=== PATIENT | male | born 1955 | race Caucasian/White ===

== ENCOUNTER 2016-03-29 10:49 | Inpatient (IN) | payer OTHER ==
[2016-03-29 11:51] VITALS: BMI 27.8
--- NOTE | 2016-03-29 12:22 | HP ---
CIWA Score - CIWA Score Nausea/Vomitin Muscle Tremors: 3 Anxiety: 3 Agitation: 3 Paroxysmal Sweats: 2 Orientation: 0-Oriented Tacttile Disturbances: 2-Mild Itch/Numbness/Burn Auditory Disturbances: 2-Mild Harshness/Frighten Visual Disturbances: 2-Mild Sensitivity Headache: 2-Mild CIWA-Ar Total Score: 22 Admission ROS BHS - HPI Chief Complaint: i need help to stop drinking alcohol Allergies/Adverse Reactions: Allergies Allergy/AdvReac Type Severity Reaction Status Date / Time No Known Allergies Allergy Verified 12/14/15 17:21 History of Present Illness: this 60 years old male with alcohol dependence,withdrawal symptom,last detox to 12/18/15 hearing both osteoarthritis of right hip s/p cataract surgery of right cataract left cane ambulation depression,insomnia seizure lat 2014 withdrawal longest period of sobriety 10 months hisotry of atial fibrillation neuropathy Exam Limitations: No Limitations - Ebola screening Have you traveled outside of the country in the last 21 days: No Have you been sick,other than usual withdrawal symptoms: No - Review of Systems Constitutional: Loss of Appetite, Malaise, Night Sweats, Weakness EENT: reports: Nose Congestion Respiratory: reports: No Symptoms reported Cardiac: reports: No Symptoms Reported GI: reports: Diarrhea, Nausea, Vomiting : reports: No Symptoms Reported Musculoskeletal: reports: Back Pain, Joint Pain, Muscle Pain Integumentary: reports: Dryness Neuro: reports: Headache, Tremors Endocrine: reports: No Symptoms Reported Hematology: reports: No Symptoms Reported Psychiatric: reports: Depressed (insomnia) Patient History - Patient Medical History Hx Anemia: No Hx Asthma: No Hx Chronic Obstructive Pulmonary Disease (COPD): No Hx Cancer: No Hx Cardiac Disorders: Yes (possible a-fib) Hx Congestive Heart Failure: No Hx Hypertension: Yes (on med) Hx Hypercholesterolemia: No Hx Pacemaker: No HX Cerebrovascular Accident: No Hx Seizures: Yes (last 2014) Hx Dementia: No Hx Diabetes: No Hx Gastrointestinal Disorders: No Hx Liver Disease: No Hx Genitourinary Disorders: No Hx Sexually Transmitted Disorders: No Hx Renal Disease (ESRD): No Hx Thyroid Disease: No Hx Human Immunodeficiency Virus (HIV): No (never been tested) Hx Hepatitis C: No Hx Depression: Yes Hx Suicide Attempt: No Hx Bipolar Disorder: No Hx Schizophrenia: No Other Medical History: insomnia,no suicidal,no homicidal,ostoarthritis of right hip ambulation wit - Patient Surgical History Past Surgical History: No Hx Cataract Extraction: Yes (R EYE) Hx Abdominal Surgery: No Hx Orthopedic Surgery: Yes (FX R HIP SX IN 2011) Other Surgical History: fx: back, rt elbow, rt hip Anesthesia Reaction: No - PPD History Previous Implant?: Yes Documented Results: Negative w/proof Implanted On Prior [facility] Admission?: Yes Date: 05/28/15 Results: 0 MM PPD to be Administered?: No - Smoking Cessation Smoking history: Current every day smoker Have you smoked in the past 12 months: No Aproximately how many cigarettes per day: 2 If you are a former smoker, when did you quit?: 20 YRS. AGO Hx Chewing Tobacco Use: No Initiated information on smoking cessation: Yes 'Breaking Loose' booklet given: 03/29/16 - Substance & Tx. History Hx Alcohol Use: Yes Hx Substance Use: No Substance Use Type: Alcohol Hx Substance Use Treatment: Yes ([facility] 12/14/15 to 12/18/15) Family Disease History - Family Disease History Family Disease History: Other: Father (BPH ()), Sister (MS and rare blood disorder. leukemia) Admission Physical Exam S - Vital Signs Vital Signs: Vital Signs - 24 hr 03/29/16 11:49 Temperature 97.8 F Pulse Rate 83 Respiratory 18 Rate Blood Pressure 139/89 - Physical General Appearance: Yes: Moderate Distress, Tremorous, Irritable, Sweating, Anxious HEENTM: Yes: Nasal Congestion, Other (cataract left eye s/p cataract surgery right) Respiratory: Yes: Lungs Clear Neck: Yes: Within Normal Limits Breast: Yes: Within Normal Limits Cardiology: Yes: Within Normal Limits, Regular Rhythm, Regular Rate, S1, S2 Abdominal: Yes: Normal Bowel Sounds, Non Tender, Soft Genitourinary: Yes: Within Normal Limits Back: Yes: Muscle Spasm Musculoskeletal: Yes: Back pain, Joint Stiffness, Muscle Pain Extremities: Yes: Tremors, Other (arthritis of right hip ambulation with cane) Neurological: Yes: automatic folder seamer II-XII NML intact, Fully Oriented, Alert, Motor Strength 5/5 Integumentary: Yes: Dry Lymphatic: Yes: Within Normal Limits - Diagnostic (1) Alcohol dependence with withdrawal, uncomplicated Current Visit: No Status: Acute (2) Nicotine dependence Current Visit: No Status: Acute (3) Hypertension Current Visit: No Status: Chronic Qualifiers: Hypertension type: essential hypertension Qualified Code(s): I10 - Essential (primary) hypertension (4) Use of cane as ambulatory aid Current Visit: No Status: Chronic (5) Depression Current Visit: Yes Status: Acute (6) Osteoarthritis of right hip Current Visit: Yes Status: Acute (7) Alcohol related seizure Current Visit: Yes Status: Acute (8) Neuropathy Current Visit: Yes Status: Acute (9) Low back pain Current Visit: Yes Status: Acute (10) History of atrial fibrillation Current Visit: Yes Status: Acute Cleared for Admission [facility] - Detox or Rehab [facility] Level of Care: Medically Managed Detox Regimen/Protocol: Librium [facility] Breath Alcohol Content Breath Alcohol Content: 0.104 Urine Drug Screen - Results Drug Screen Negative: No Urine Drug Screen Results: TCA-Tricyclic Antidepress
[2016-03-29] MEDS ORDERED: MAG HYDROX/AL HYDROX/SIMETH 30 ML UNIT-DOSE CUP PO PRN (12:49)
[2016-03-29] MEDS ORDERED: LOPERAMIDE HCL 2 MG CAPSULE PO PRN (12:49)
[2016-03-29] MEDS ORDERED: ACETAMINOPHEN 325 MG TABLET (FP) PO PRN (12:49)
[2016-03-29] MEDS ORDERED: MENTHOL/PHENOL 1 EACH UD MM PRN (12:49)
[2016-03-29] MEDS ORDERED: MAGNESIUM CITRATE 300 ML BOTTLE PO PRN (12:49)
[2016-03-29] MEDS ORDERED: P-EPHED 60MG/TRIPROLIDI 2.5MG TABLET PO PRN (12:49)
[2016-03-29] MEDS ORDERED: MAGNESIUM HYDROX 2400MG/30ML ORAL SUSPENSION 30 ML CUP PO PRN (12:49)
[2016-03-29] MEDS ORDERED: guaiFENesin/D-METHORPHAN HB 10 ML UNIT-DOSE CUPS PO PRN (12:49)
[2016-03-29] MEDS ORDERED: diphenhydrAMINE HCL 50 MG CAPSULE PO PRN (12:49)
[2016-03-29] MEDS ORDERED: IBUPROFEN 400 MG TABLET (FP) PO PRN (12:49)
[2016-03-29] MEDS ORDERED: chlordiazePOXIDE HCL 25 MG CAPSULE PO ONE (13:52)
--- NOTE | 2016-03-29 14:03 | CONSULT ---
[facility] Psychiatric Consult - Data Date of interview: 03/29/16 Admission source: [facility] Identifying data: This is 60 years old male, ambulating with cane withy no history of psychiatric hospitalization intoxicated with: Alcohol and Nicotine Substance Abuse History: - Smoking Cessation. Smoking history: Current every day smoker. Have you smoked in the past 12 months: No. Aproximately how many cigarettes per day: 2. If you are a former smoker, when did you quit?: 20 YRS. AGO. Hx Chewing Tobacco Use: No. Initiated information on smoking cessation: Yes. 'Breaking Loose' booklet given: 03/29/16. - Substance & Tx. History. Hx Alcohol Use: Yes. Hx Substance Use: No. Substance Use Type: Alcohol. Hx Substance Use Treatment: Yes ([facility] 12/14/15 to 12/18/15) Medical History: Right hip fracture 2-3 yearsv ago, p/op right hip fracture, AFib, LBP[, Neyropathy, Osteoarthritis history, HTN Psychiatric History: Patient reportsa history of anxietry and depression, reports taking prior to admission: Gabapentine 300mg po tid. Trazodone 300mg pop qhs. Topamax 100mg po qhs Physical/Sexual Abuse/Trauma History: Denies Additional Comment: Gabapentine 300mg po tid. Trazodone 300mg pop qhs. Topamax 100mg po qhs Mental Status Exam - Mental Status Exam Alert and Oriented to: Person Cognitive Function: Fair Patient Appearance: Unkempt Mood: Anxious Affect: Mood Congruent Patient Behavior: Cooperative Speech Pattern: Pressured Voice Loudness: Normal Thought Process: Goal Oriented Thought Disorder: Being Controlled Hallucinations: Denies Suicidal Ideation: Denies Homicidal Ideation: Denies Insight/Judgement: Fair Sleep: Difficulty falling asleep Appetite: Weight gain Muscle strength/Tone: Moderate Hypertonicity Gait/Station: Ataxic Additional Comments: Gabapentine 300mg po tid. Trazodone 300mg pop qhs. Topamax 100mg po qhs Psychiatric Findings - Problem List ([place] 1, 2,3) (1) Alcohol related seizure Current Visit: Yes Status: Acute (2) Depression Current Visit: Yes Status: Acute (3) Alcohol dependence with withdrawal, uncomplicated Current Visit: No Status: Acute (4) Drug-induced mood disorder Current Visit: No Status: Acute (5) Nicotine dependence Current Visit: No Status: Acute - Initial Treatment Plan Initial Treatment Plan: Gabapentine 300mg po tid. Trazodone 300mg pop qhs. Topamax 100mg po qhs
[2016-03-29] MEDS: GABAPENTIN 300 MG CAPSULE (FP) PO SCH ×2 (15:39→22:47)
[2016-03-29] MEDS: hydrOXYzine PAMOATE 25 MG CAPSULE (FP) PO PRN (15:39)
[2016-03-29 16:05] LABS: URINE APPEARANCE CLEAR; URINE BILIRUBIN NEGATIVE (NEGATIVE); URINE BLOOD NEGATIVE (NEGATIVE); URINE COLOR YELLOW; URINE GLUCOSE (UA) NEGATIVE (NEGATIVE); URINE KETONE NEGATIVE (NEGATIVE); URINE LEUK ESTERASE NEGATIVE (NEGATIVE); URINE NITRITE NEGATIVE (NEGATIVE); URINE PROTEIN NEGATIVE (NEGATIVE); URINE UROBILINOGEN 2.0 E.U/dl E.U./dl (0.2-1.0)
[2016-03-29] MEDS: chlordiazePOXIDE HCL 25 MG CAPSULE PO SCH ×2 (17:25→22:47)
[2016-03-29] MEDS: chlordiazePOXIDE HCL 25 MG CAPSULE PO PRN (20:32)
[2016-03-29] MEDS: traZODone HCL 100 MG TABLET (FP) PO SCH (22:47)
[2016-03-29] MEDS: TOPIRAMATE 100 MG TABLET PO SCH (22:47)
[2016-03-29] MEDS: THIAMINE HCL 100 MG TABLET (FP) PO SCH (22:47)
[2016-03-30] MEDS: chlordiazePOXIDE HCL 25 MG CAPSULE PO SCH ×4 (06:03→22:36)
[2016-03-30] MEDS: GABAPENTIN 300 MG CAPSULE (FP) PO SCH ×3 (06:04→22:36)
[2016-03-30 10:24] LABS: MCH 30.8 pg (25.7-33.7); MCHC 33.7 g/dl (32.0-35.9); MEAN CELL VOLUME 91.3 fl (80-96); MEAN PLT VOLUME 7.6 fl (7.5-11.1); PLATELET COUNT 193 K/MM3 (134-434); RDW 14.6 % (11.9-15.9); WHITE BLOOD COUNT 5.5 K/mm3 (4.0-10.0)
[2016-03-30] MEDS: PRENATAL VITAMINS W/ FOLIC ACID TABLET (FP) PO SCH (10:38)
[2016-03-30] MEDS: ATENOLOL 25 MG TABLET (FP) PO SCH (10:39)
[2016-03-30] MEDS: SPIRONOLACTONE 25 MG TABLET (FP) PO SCH (10:39)
[2016-03-30] MEDS: hydrOXYzine PAMOATE 25 MG CAPSULE (FP) PO PRN ×2 (10:39→15:12)
[2016-03-30] MEDS: CHOLECALCIFEROL (VITAMIN D3) 1,000 UNIT TABLET (FP) PO SCH (10:40)
[2016-03-30] MEDS: CYANOCOBALAMIN 1,000 MCG TABLET (FP) PO SCH (10:40)
[2016-03-30 10:50] LABS: ALBUMIN 4.3 g/dl (3.4-5.0); ALK PHOS 72 U/L (45-117); ANION GAP 11 (8-16); CALCIUM 9.1 mg/dL (8.5-10.1); CO2 25 mmol/L (21-32); GLUCOSE,RANDOM 95 mg/dL (74-106); SGOT/AST 36 U/L (15-37); SGPT/ALT 35 U/L (12-78); TOT PROT 7.9 g/dl (6.4-8.2)
--- NOTE | 2016-03-30 10:55 | PN ---
S CIWA - CIWA Score Nausea/Vomitin Muscle Tremors: 3 Anxiety: 3 Agitation: 3 Paroxysmal Sweats: 1-Minimal Palms Moist Orientation: 0-Oriented Tacttile Disturbances: 1-Very Mild Itch/Numbness Auditory Disturbances: 1-Very Mild Visual Disturbances: 1-Very Mild Sensitivity Headache: 2-Mild CIWA-Ar Total Score: 18 BHS Progress Note (SOAP) Subjective: ALERT,IRRITABLE,ANXIOUS,INTERRUPTED SLEEP,TREMOR,PAIN IN THE BODY RIGHT HIP Objective: 03/30/16 10:54 Vital Signs Temperature 97.7 F 03/30/16 10:04 Pulse Rate 97 H 03/30/16 10:04 Respiratory Rate 18 03/30/16 10:04 Blood Pressure 148/94 03/30/16 10:04 O2 Sat by Pulse Oximetry (%) 03/30/16 10:54 Laboratory Last Values WBC 5.5 K/mm3 (4.0-10.0) 03/30/16 06:00 RBC 5.66 M/mm3 (4.00-5.60) H 03/30/16 06:00 Hgb 17.4 GM/dL (11.7-16.9) H 03/30/16 06:00 Hct 51.6 % (35.4-49) H 03/30/16 06:00 MCV 91.3 fl (80-96) 03/30/16 06:00 MCHC 33.7 g/dl (32.0-35.9) 03/30/16 06:00 RDW 14.6 % (11.9-15.9) 03/30/16 06:00 Plt Count 193 K/MM3 (134-434) 03/30/16 06:00 MPV 7.6 fl (7.5-11.1) 03/30/16 06:00 Sodium 139 mmol/L (136-145) 03/30/16 06:00 Potassium 3.9 mmol/L (3.5-5.1) 03/30/16 06:00 Chloride 103 mmol/L (98-107) 03/30/16 06:00 Carbon Dioxide 25 mmol/L (21-32) 03/30/16 06:00 Anion Gap 11 (8-16) 03/30/16 06:00 BUN 7 mg/dL (7-18) 03/30/16 06:00 Creatinine 1.0 mg/dL (0.7-1.3) 03/30/16 06:00 Creat Clearance w eGFR > 60 (>60) 03/30/16 06:00 Random Glucose 95 mg/dL (74-106) 03/30/16 06:00 Calcium 9.1 mg/dL (8.5-10.1) 03/30/16 06:00 Total Bilirubin 1.0 mg/dL (0.2-1.0) D 03/30/16 06:00 AST 36 U/L (15-37) D 03/30/16 06:00 ALT 35 U/L (12-78) D 03/30/16 06:00 Alkaline Phosphatase 72 U/L (45-117) 03/30/16 06:00 Total Protein 7.9 g/dl (6.4-8.2) 03/30/16 06:00 Albumin 4.3 g/dl (3.4-5.0) 03/30/16 06:00 Urine Color Yellow 03/29/16 15:00 Urine Appearance Clear 03/29/16 15:00 Urine pH 6.0 (5.0-8.0) D 03/29/16 15:00 Ur Specific [place] 1.014 (1.001-1.035) 03/29/16 15:00 Urine Protein Negative (NEGATIVE) 03/29/16 15:00 Urine Glucose (UA) Negative (NEGATIVE) 03/29/16 15:00 Urine Ketones Negative (NEGATIVE) 03/29/16 15:00 Urine Blood Negative (NEGATIVE) 03/29/16 15:00 Urine Nitrite Negative (NEGATIVE) 03/29/16 15:00 Urine Bilirubin Negative (NEGATIVE) 03/29/16 15:00 Urine Urobilinogen 2.0 e.u/dl E.U./dl (0.2-1.0) 03/29/16 15:00 Ur Leukocyte Esterase Negative (NEGATIVE) 03/29/16 15:00 Assessment: 03/30/16 10:54 WITHDRAWAL SYMPTOM Plan: CONTINUE DETOX
--- NOTE | 2016-03-30 12:43 | EKG ---
Test Reason : Blood Pressure : / mmHG Vent. Rate : 094 BPM Atrial Rate : 094 BPM P-R Int : 136 ms QRS Dur : 106 ms QT Int : 366 ms P-R-T Axes : 043 -62 056 degrees QTc Int : 457 ms NORMAL SINUS RHYTHM POSSIBLE LEFT ATRIAL ENLARGEMENT LEFT ANTERIOR FASCICULAR BLOCK ABNORMAL ECG WHEN COMPARED WITH ECG OF 13-JUN-2015 17:16, NO SIGNIFICANT CHANGE WAS FOUND Confirmed by ALEJANDRO ARBOLEDA MD ([id number]) on 03/30/2016 12:42:51 PM Referred By: Confirmed By:ALEJANDRO ARBOLEDA MD
[2016-03-30] MEDS: chlordiazePOXIDE HCL 25 MG CAPSULE PO PRN ×2 (14:30→20:04)
[2016-03-30] MEDS: TOPIRAMATE 100 MG TABLET PO SCH (22:36)
[2016-03-30] MEDS: traZODone HCL 100 MG TABLET (FP) PO SCH (22:36)
[2016-03-30] MEDS: THIAMINE HCL 100 MG TABLET (FP) PO SCH (22:36)
[2016-03-31] MEDS: GABAPENTIN 300 MG CAPSULE (FP) PO SCH ×3 (05:50→22:05)
[2016-03-31] MEDS: chlordiazePOXIDE HCL 25 MG CAPSULE PO SCH ×2 (05:50→10:15)
[2016-03-31] MEDS: ATENOLOL 25 MG TABLET (FP) PO SCH (07:05)
[2016-03-31] MEDS: SPIRONOLACTONE 25 MG TABLET (FP) PO SCH (07:05)
[2016-03-31] MEDS: PRENATAL VITAMINS W/ FOLIC ACID TABLET (FP) PO SCH (10:15)
[2016-03-31] MEDS: CHOLECALCIFEROL (VITAMIN D3) 1,000 UNIT TABLET (FP) PO SCH (10:15)
[2016-03-31] MEDS: CYANOCOBALAMIN 1,000 MCG TABLET (FP) PO SCH (10:15)
--- NOTE | 2016-03-31 12:52 | PN ---
S CIWA - CIWA Score Nausea/Vomitin Muscle Tremors: 3 Anxiety: 2 Agitation: 2 Paroxysmal Sweats: 1-Minimal Palms Moist Orientation: 0-Oriented Tacttile Disturbances: 1-Very Mild Itch/Numbness Auditory Disturbances: 1-Very Mild Visual Disturbances: 1-Very Mild Sensitivity Headache: 2-Mild CIWA-Ar Total Score: 16 S Progress Note (SOAP) Subjective: ALERT,IRRITABLE,ANXIOUS,INTERRUPTED SLEEP,TREMOR Objective: 03/31/16 12:50 Vital Signs Temperature 96.4 F L 03/31/16 10:00 Pulse Rate 71 03/31/16 10:00 Respiratory Rate 20 03/31/16 10:00 Blood Pressure 116/54 03/31/16 10:00 O2 Sat by Pulse Oximetry (%) 03/31/16 12:51 Laboratory Last Values WBC 5.5 K/mm3 (4.0-10.0) 03/30/16 06:00 RBC 5.66 M/mm3 (4.00-5.60) H 03/30/16 06:00 Hgb 17.4 GM/dL (11.7-16.9) H 03/30/16 06:00 Hct 51.6 % (35.4-49) H 03/30/16 06:00 MCV 91.3 fl (80-96) 03/30/16 06:00 MCHC 33.7 g/dl (32.0-35.9) 03/30/16 06:00 RDW 14.6 % (11.9-15.9) 03/30/16 06:00 Plt Count 193 K/MM3 (134-434) 03/30/16 06:00 MPV 7.6 fl (7.5-11.1) 03/30/16 06:00 Sodium 139 mmol/L (136-145) 03/30/16 06:00 Potassium 3.9 mmol/L (3.5-5.1) 03/30/16 06:00 Chloride 103 mmol/L (98-107) 03/30/16 06:00 Carbon Dioxide 25 mmol/L (21-32) 03/30/16 06:00 Anion Gap 11 (8-16) 03/30/16 06:00 BUN 7 mg/dL (7-18) 03/30/16 06:00 Creatinine 1.0 mg/dL (0.7-1.3) 03/30/16 06:00 Creat Clearance w eGFR > 60 (>60) 03/30/16 06:00 Random Glucose 95 mg/dL (74-106) 03/30/16 06:00 Calcium 9.1 mg/dL (8.5-10.1) 03/30/16 06:00 Total Bilirubin 1.0 mg/dL (0.2-1.0) D 03/30/16 06:00 AST 36 U/L (15-37) D 03/30/16 06:00 ALT 35 U/L (12-78) D 03/30/16 06:00 Alkaline Phosphatase 72 U/L (45-117) 03/30/16 06:00 Total Protein 7.9 g/dl (6.4-8.2) 03/30/16 06:00 Albumin 4.3 g/dl (3.4-5.0) 03/30/16 06:00 Urine Color Yellow 03/29/16 15:00 Urine Appearance Clear 03/29/16 15:00 Urine pH 6.0 (5.0-8.0) D 03/29/16 15:00 Ur Specific [place] 1.014 (1.001-1.035) 03/29/16 15:00 Urine Protein Negative (NEGATIVE) 03/29/16 15:00 Urine Glucose (UA) Negative (NEGATIVE) 03/29/16 15:00 Urine Ketones Negative (NEGATIVE) 03/29/16 15:00 Urine Blood Negative (NEGATIVE) 03/29/16 15:00 Urine Nitrite Negative (NEGATIVE) 03/29/16 15:00 Urine Bilirubin Negative (NEGATIVE) 03/29/16 15:00 Urine Urobilinogen 2.0 e.u/dl E.U./dl (0.2-1.0) 03/29/16 15:00 Ur Leukocyte Esterase Negative (NEGATIVE) 03/29/16 15:00 RPR Titer Nonreactive (NONREACTIVE) 03/30/16 06:00 Assessment: 03/31/16 12:51 WITHDRAWAL SYMPTOM Plan: CONTINUE DETOX
[2016-03-31] MEDS: chlordiazePOXIDE 5 MG CAPSULE PO SCH ×2 (17:50→22:05)
[2016-03-31] MEDS: TOPIRAMATE 100 MG TABLET PO SCH (22:05)
[2016-03-31] MEDS: traZODone HCL 100 MG TABLET (FP) PO SCH (22:05)
[2016-03-31] MEDS: THIAMINE HCL 100 MG TABLET (FP) PO SCH (22:06)
[2016-04-01] MEDS: chlordiazePOXIDE 5 MG CAPSULE PO SCH ×2 (05:47→10:12)
[2016-04-01] MEDS: GABAPENTIN 300 MG CAPSULE (FP) PO SCH ×3 (05:52→22:01)
[2016-04-01] MEDS: SPIRONOLACTONE 25 MG TABLET (FP) PO SCH (06:47)
[2016-04-01] MEDS: ATENOLOL 25 MG TABLET (FP) PO SCH (06:47)
[2016-04-01] MEDS: CYANOCOBALAMIN 1,000 MCG TABLET (FP) PO SCH (10:13)
[2016-04-01] MEDS: PRENATAL VITAMINS W/ FOLIC ACID TABLET (FP) PO SCH (10:13)
[2016-04-01] MEDS: CHOLECALCIFEROL (VITAMIN D3) 1,000 UNIT TABLET (FP) PO SCH (10:13)
--- NOTE | 2016-04-01 12:59 | PN ---
S Progress Note (SOAP) Subjective: ALERT,INTERRUPTED SLEEP Objective: 04/01/16 12:59 Vital Signs Temperature 98.2 F 04/01/16 10:00 Pulse Rate 72 04/01/16 10:00 Respiratory Rate 18 04/01/16 10:00 Blood Pressure 117/77 04/01/16 10:00 O2 Sat by Pulse Oximetry (%) Assessment: 04/01/16 12:59 WITHDRAWAL SYMPTOM Plan: CONTINUE DETOX,DISCHARGE IN AM
[2016-04-01] MEDS: chlordiazePOXIDE HCL 10 MG CAPSULE PO SCH ×2 (17:16→22:05)
[2016-04-01] MEDS: traZODone HCL 100 MG TABLET (FP) PO SCH (22:01)
[2016-04-01] MEDS: TOPIRAMATE 100 MG TABLET PO SCH (22:03)
[2016-04-01] MEDS: THIAMINE HCL 100 MG TABLET (FP) PO SCH (22:05)
[2016-04-02] MEDS: ATENOLOL 25 MG TABLET (FP) PO SCH (06:11)
[2016-04-02] MEDS: chlordiazePOXIDE HCL 10 MG CAPSULE PO SCH ×2 (06:11→10:05)
[2016-04-02] MEDS: SPIRONOLACTONE 25 MG TABLET (FP) PO SCH (06:11)
[2016-04-02] MEDS: GABAPENTIN 300 MG CAPSULE (FP) PO SCH ×3 (06:12→22:12)
--- NOTE | 2016-04-02 08:40 | PN ---
BHS Progress Note (SOAP) Subjective: ALERT,IRRITABLE,ANXIOUS,INTERRUPTED SLEEP,TREMOR.PAIN THE RIGHT HIP Objective: 04/02/16 08:37 04/02/16 08:38 Vital Signs Temperature 97.2 F L 04/02/16 06:00 Pulse Rate 71 04/02/16 06:00 Respiratory Rate 18 04/02/16 06:00 Blood Pressure 139/76 04/02/16 06:00 O2 Sat by Pulse Oximetry (%) Assessment: 04/02/16 08:38 WITHDRAWAL SYMPTOM Plan: HOLD DISCHARGE TODAY,CONTINUE DETOX OBSERVATION,DISCHARGE IN AM
[2016-04-02] MEDS: CHOLECALCIFEROL (VITAMIN D3) 1,000 UNIT TABLET (FP) PO SCH (10:05)
[2016-04-02] MEDS: PRENATAL VITAMINS W/ FOLIC ACID TABLET (FP) PO SCH (10:05)
[2016-04-02] MEDS: CYANOCOBALAMIN 1,000 MCG TABLET (FP) PO SCH (10:05)
[2016-04-02] MEDS: traZODone HCL 100 MG TABLET (FP) PO SCH (22:12)
[2016-04-02] MEDS: TOPIRAMATE 100 MG TABLET PO SCH (22:12)
[2016-04-02] MEDS: THIAMINE HCL 100 MG TABLET (FP) PO SCH (22:12)
[2016-04-03] MEDS: GABAPENTIN 300 MG CAPSULE (FP) PO SCH (07:00)
[2016-04-03] MEDS: ATENOLOL 25 MG TABLET (FP) PO SCH (07:28)
[2016-04-03] MEDS: SPIRONOLACTONE 25 MG TABLET (FP) PO SCH (07:28)
--- NOTE | 2016-04-03 09:47 | DS ---
[facility] Detox Discharge Summary Admission Date: 03/29/16 - History Present History: Alcohol Dependence - Physical Exam Results Vital Signs: Vital Signs Temperature 97.9 F 04/03/16 06:52 Pulse Rate 73 04/03/16 06:52 Respiratory Rate 18 04/03/16 06:52 Blood Pressure 123/73 04/03/16 06:52 O2 Sat by Pulse Oximetry (%) - Medication Discharge Medications: Ambulatory Orders Cholecalciferol (Vitamin D3) [Vitamin D3] 1,000 unit PO DAILY capsule 09/02/14 Cyanocobalamin (Vitamin B-12) [Vitamin B-12] 1,000 mcg PO DAILY tablet Gabapentin 300 mg PO TID 11/02/14 Topiramate [Topamax] 100 mg PO HS 03/27/16 Topiramate [Topamax -] 100 mg PO HS #30 tablet 03/29/16 Trazodone HCl [Desyrel -] 300 mg PO HS #30 tablet 03/29/16
[2016-04-03 10:14] VITALS: BP 116/63; PULSE 65; TEMP 97.7
== END 2016-04-03 11:26 | disposition home or self-care (01) | DRG 897 ==
LOC: YASAS 10:49 → Y6N 13:45
PROVIDERS: ADMIT Internal Medicine Addiction Medicine; ATTEND Internal Medicine Addiction Medicine
PROC: HZ2ZZZZ Detoxification Services for Substance Abuse Treatment (ICD-10-PCS; principal; 2016-03-29)
DX: F19.230 Other psychoactive substance dependence with withdrawal, uncomplicated (principal); F10.230 Alcohol dependence with withdrawal, uncomplicated; F17.210 Nicotine dependence, cigarettes, uncomplicated; F19.24 Other psychoactive substance dependence with psychoactive substance-induced mood disorder; F32.9 Major depressive disorder, single episode, unspecified; M16.11 Unilateral primary osteoarthritis, right hip; H26.9 Unspecified cataract; G47.00 Insomnia, unspecified; I10 Essential (primary) hypertension; G62.9 Polyneuropathy, unspecified; M54.5 Low back pain; Z86.69 Personal history of other diseases of the nervous system and sense organs; Z98.41 Cataract extraction status, right eye; Z86.79 Personal history of other diseases of the circulatory system
CPT/HCPCS: 36415; 71020-TC; 73700-TC-RT; 80053; 81003; 85027; 86593; 93005; 93010; 93306-TC

== ENCOUNTER 2016-04-03 08:00 | Inpatient (IN) | payer OTHER ==
--- NOTE | 2016-04-16 13:28 | HP ---
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: Peripheral Neuropathy Cardiovascular: Yes: HTN (can not recall meds at home) Hepatobiliary: Yes: Other (alcoholic hepatitis) Musculoskeletal: Yes: Chronic low back pain (old compression fractures) - Current Medications Current Medications: Medication Instructions Recorded Cholecalciferol (Vitamin D3) 1,000 unit PO DAILY capsule 09/02/14 [Vitamin D3] Cyanocobalamin (Vitamin B-12) 1,000 mcg PO DAILY tablet 09/02/14 [Vitamin B-12] Gabapentin 300 mg PO TID 11/02/14 Topiramate [Topamax] 100 mg PO HS 03/27/16 Topiramate [Topamax -] 100 mg PO HS #30 tablet 03/29/16 Trazodone HCl [Desyrel -] 300 mg PO HS #30 tablet 03/29/16 Atenolol [Tenormin -] 25 mg PO AM #30 tablet 04/03/16 Diltiazem Cd [Cardizem Cd -] 180 mg PO AM #30 cap.cd.24h 04/03/16 Gabapentin [Neurontin -] 300 mg PO TID #90 capsule 04/03/16 Spironolactone [Aldactone -] 25 mg PO AM #30 tablet 04/03/16 Trazodone HCl 150 mg PO 2 TABS HS tablet 04/10/16 Satellite Physical Exam - Physical Examination General Appearance: Well Nourished, Well Developed, Alert & Oriented x3 ENT: Clear Lung: Normal air movement Heart: Regular rate & rhythm Extremities: Other (right hip- healed incisions, + ttp, dec rom, nvi xrays show gamma in place with severe hip djd) Neurological: Intact, Alert, Oriented Satellite Impression/Plan - Impression/Plan Impression: right hip djd s/p gamma nail Operative Procedure: right hip removal of hardware conversion to charisma THR Date to be Performed: 04/17/16
[2016-04-17] MEDS ORDERED: GABAPENTIN 300 MG CAPSULE (FP) PO ONE (08:42)
[2016-04-17] MEDS ORDERED: oxyCODONE HCL 10 MG SUSTAINED ACTING TABLET PO ONE (08:42)
[2016-04-17] MEDS ORDERED: TRANEXAMIC ACID 1000 MG/10 ML VIAL IVPUSH ONE (08:42)
[2016-04-17] MEDS ORDERED: CELECOXIB 200 MG CAPSULE PO ONE (08:42)
[2016-04-17] MEDS ORDERED: CEFAZOLIN 2 GM in DEXTROSE 5%-WATER - 50 ML IVPB ONE (08:42)
[2016-04-17 09:25] VITALS: BMI 27.3
[2016-04-17] MEDS ORDERED: PROPOFOL 20 ML ONE ×2 (09:30)
[2016-04-17] MEDS ORDERED: DEXAMETHASONE SOD PHOSPHATE 4 MG/1 ML VIAL ONE (09:31)
[2016-04-17] MEDS ORDERED: ONDANSETRON 4 MG/2 ML VIAL ONE (09:31)
[2016-04-17] MEDS ORDERED: ceFAZolin SODIUM 1 GM VIAL ONE ×2 (09:31→10:36)
[2016-04-17] MEDS ORDERED: VANCOMYCIN 1,000 MG VIAL (RESTRICTED TO ID ONLY) ONE (10:36)
[2016-04-17] MEDS ORDERED: ROPIVACAINE HCL 0.5% 30ML VIAL ONE (10:43)
[2016-04-17] MEDS ORDERED: DEXAMETHASONE SOD PHOSPHATE/PF 10 MG/ML SDV ONE (10:43)
[2016-04-17] MEDS ORDERED: MIDAZOLAM HCL 2 MG/2 ML SINGLE DOSE VIAL ONE ×3 (10:43→13:39)
[2016-04-17] MEDS ORDERED: SODIUM CHLORIDE 0.9% P/F 10 ML VIAL IJ ONE (10:44)
[2016-04-17] MEDS ORDERED: BUPIVACAINE HCL/PF 0.5% (5MG/ML) 10 ML VIAL ONE (11:31)
[2016-04-17] MEDS ORDERED: ePHEDrine SULFATE 50 MG/1 ML AMPULE ONE (11:58)
[2016-04-17 13:48] LABS: MCH 30.5 pg (25.7-33.7); MEAN CELL VOLUME 89.7 fl (80-96); MEAN PLT VOLUME 6.6 fl (7.5-11.1); PLATELET COUNT 273 K/MM3 (134-434); WHITE BLOOD COUNT 8.7 K/mm3 (4.0-10.0)
[2016-04-17] MEDS ORDERED: MAGNESIUM HYDROX 2400MG/30ML ORAL SUSPENSION 30 ML CUP PO PRN (14:22)
--- NOTE | 2016-04-17 14:26 | OP ---
Operative Note - Note: Operative Date: 04/17/16 (shante) Pre-Operative Diagnosis: right hip djd, s/p right IM gamma nail Operation: right hip removal of hardware, charisma thr Post-Operative Diagnosis: Same as Pre-op Surgeon: Zaki Leonard Ur Coordinator: Moe Sam Anesthesiologist/STAINING MACHINE OPERATOR: Antonia Moralez Anesthesia: Spinal, Local Specimens Removed: femoral head, bone fragments Estimated Blood Loss (mls): 1,200 Operative Report Dictated: Yes
[2016-04-17] MEDS ORDERED: LACTATED RINGERS SOLUTION 1,000 ML IV SCH (14:30)
[2016-04-17] MEDS ORDERED: MAG HYDROX/AL HYDROX/SIMETH 30 ML UNIT-DOSE CUP PO PRN (15:05)
[2016-04-17] MEDS ORDERED: ONDANSETRON 4 MG/2 ML VIAL IVPB PRN (15:06)
[2016-04-17] MEDS ORDERED: ACETAMINOPHEN 1000 MG/100 ML VIAL (NON FORMULARY) IVPB ONE ×2 (15:30)
[2016-04-17] MEDS: oxyCODONE HCL 5 MG TABLET PO PRN ×3 (15:30→22:09)
[2016-04-17] MEDS: ACETAMINOPHEN 325 MG TABLET (FP) PO SCH ×2 (16:54→22:09)
[2016-04-17] MEDS ORDERED: PT OWN MED DRAWER 7, Y5N ONE ×2 (17:55→21:59)
[2016-04-17] MEDS ORDERED: traZODone HCL 150 MG TABLET PO SCH (22:00)
[2016-04-17] MEDS: CEFAZOLIN 2 GM/D5W 50 ML IVPB SCH (22:06)
[2016-04-17] MEDS: oxyCODONE HCL 10 MG SUSTAINED ACTING TABLET PO SCH (22:07)
[2016-04-17] MEDS: GABAPENTIN 300 MG CAPSULE (FP) PO SCH (22:07)
[2016-04-17] MEDS: TOPIRAMATE 100 MG TABLET PO SCH (22:07)
[2016-04-17] MEDS: traZODone HCL 50 MG TABLET (FP) PO SCH (22:08)
[2016-04-17] MEDS: SENNOSIDES/DOCUSATE COMBO (SENNA PLUS) TABLET (UD) PO SCH (22:08)
--- NOTE | 2016-04-17 23:30 | OP ---
DATE OF OPERATION: 04/17/2016 PREOPERATIVE DIAGNOSIS: Degenerative joint disease, right hip in a hip that previously had a Gamma nail for an intertrochanteric hip fracture. POSTOPERATIVE DIAGNOSIS: Degenerative joint disease, right hip in a hip that previously had a Gamma nail for an intertrochanteric hip fracture. PROCEDURE: Conversion of prior Gamma nailing to a right total hip replacement with robotic assisted navigation ([employer]). SURGEON: Zaki Leonard MD SUPPORT SPECIALIST: SRIDEVI Gavin ANESTHESIA: Spinal and regional. CLOSURE: Muslim Modular total hip system with a No. 18 femoral stem, a +10 body, a 36 ceramic Standard femoral head, a 54 Tritanium press fit acetabulum, No. 1 Vicryl to fascia, 0 and 2-0 subcutaneous, and 3-0 Monocryl subcuticular with skin glue. ESTIMATED BLOOD LOSS: Approximately 500 mL. COMPLICATIONS: None. CONDITION: To recovery in stable condition. DESCRIPTION OF PROCEDURE: The patient was taken to the operating room on 04/17/2016. Spinal as well as regional anesthesia was administered by the anesthesiologist. IV Kefzol and TXA were administered prophylactically prior to the case. The patient was placed in the lateral decubitus position with all prominences well padded. The right hip area was prepped and draped in the usual sterile fashion. A 15-cm curvilinear longitudinal incision on the posterolateral aspect of the hip was incised. Hemostasis was obtained with Bovie cautery. Sharp dissection was carried down to the level of the fascia. It was opened the entire length of the incision. A Charnley retractor was placed and care was taken not to impel the sciatic nerve. A small stab incision was made distally over the distal locking screw. It was found that the screw buried in bone; therefore, we needed to extend the operative incision down there to gain exposure, which we did anteriorly and posteriorly with retractors. Curettes and osteotomes were used to free up the head of the screw. The screw was then removed. The lag screw was clearly visualized; however, due to the set screw was placed inside the poncho, the lag screw could not be removed. Subperiosteal dissection was done in the posterior aspect of the greater trochanter until we gained access to the hip. A lot of bone had overgrown this region of the previous hip fracture. Much of this bone was debrided away to gain exposure, ensuring that we left the abductor attached to the greater trochanter and that was not detached . All that was detached was excess bone posteriorly. Care was taken to do this subperiosteally to protect the sciatic nerve posteriorly. The greater trochanter was then partially osteotomized to be able to elevate it to gain access to the proximal aspect of the Gamma nail, which was buried within the bone. Once access was gained, set screw was unlocked and the lag screw was then removed and then the poncho was able to be slid out of the intramedullary canal. The femoral neck was osteotomized at the appropriate level, removing the femoral head. Great deal of heterotopic bone had formed around the femoral shaft and this was again removed subperiosteally to ensure that this bone would not encroach on our acetabulum and dislocate her hip postoperative. Anterior and posterior retractors were then placed around the acetabulum. The labrum was excised circumferentially. Exposing the acetabulum. A checkpoint was placed in the pelvis and malleted into place. Through 3 small stab incisions, pins were drilled into the iliac crest and an array was fastened to communicate with the navigation device. The hip was then registered with the navigation device and ensured registration was "popping the bubbles". The [employer] robot was then brought into the field. A 53 reamer was used to ream the acetabulum down to the appropriate level, as per our preoperative plan. A 54 Tritanium cup was then malleted into place using the MED navigation tool to ensure a 20/40 position of the acetabular component. Excellent rigidity was obtained. A polyethylene cup able to receive a 36-mm head with a 10 degree lip in the superior posterior quadrant was then clipped into placed. Next, our attention was directed to the proximal femur. A horizontal cut was made on the femoral shaft to get a nice flat surface for reaming. Intramedullary reaming was performed until an 18-mm reamer achieved chatter. The real fluted and ridged stem was then malleted down into place down to the appropriate depth. The trunnion was reamed to accept a 22 body. A trial reduction with a +10-mm length body with the appropriate aversion was performed with the 36-mm head. Equal limb lengths were obtained and the hip was table to marked flexion and internal rotation, had a positive hang test, and negative telescoping and was stable in external rotation. The trial body and head were removed. The real body was welded to the trunnion and then screwed with a locking screw with the appropriate aversion being placed. A 36-mm ceramic head was then cold welded to the trunnion and the hip was reduced. Again, range of motion, stability, and limb lengths were as described earlier. The hip was pulsed antibiotic irrigated. The greater trochanter, which had been osteotomized, was placed back, against the prosthesis, its undersurface where it was hallowed out to ensure good fitting of the trochanter on the prosthesis. Two Dall-Bauzaar cables were placed around the proximal body of the component and around the greater trochanter and through a medium cable associate professor of music for the trochanter. It was appropriately tensioned and clipped into place. The excess wire was cut flush with the cable associate professor of music. Range of motion and stability of the construct was demonstrated to e excellent throughout. Some of the cancellous bone that we had taken out of the head and from the trochanter was used to bone graft the region between the greater trochanter and the prosthesis and the greater trochanter and the distal femur to aid in bon healing. Vancomycin powder placed into the hip joint. The fascia was closed using No. 1 Vicryl interrupted suture, 0 and 2-0 for subcutaneous, and 3-0 Monocryl subcuticular with skin glue for the skin. Pressure dressing with an Aquacel dressing was applied. The patient was awakened from anesthesia and transferred to the recovery room in the supine position. X-ray was taken, which revealed excellent position of the components. Bilateral SCDs and abduction pillow was applied. Estimated blood loss was approximately 500 mL. No complications. Marta [id number]
[2016-04-18] MEDS: CEFAZOLIN 2 GM/D5W 50 ML IVPB SCH (04:40)
[2016-04-18] MEDS: ACETAMINOPHEN 325 MG TABLET (FP) PO SCH ×4 (04:40→21:08)
[2016-04-18] MEDS: ATENOLOL 25 MG TABLET (FP) PO SCH (06:22)
[2016-04-18] MEDS: SPIRONOLACTONE 25 MG TABLET (FP) PO SCH (06:22)
[2016-04-18] MEDS: oxyCODONE HCL 5 MG TABLET PO PRN ×2 (08:26→17:49)
[2016-04-18] MEDS: ASPIRIN 325 MG TABLET PO SCH (08:26)
--- NOTE | 2016-04-18 08:29 | PN ---
Progress Note (short form) - Note Progress Note: Ortho Pt seen and examined s/p right charisma thr pod #1 Selected Entries 04/18/16 06:24 Temperature 98.6 F Pulse Rate 77 Respiratory 20 Rate Blood Pressure 101/46 dressing c/d/i, calf soft, nt nvi a/p PT dvt ppx pain control d/c planning
[2016-04-18 08:55] LABS: MEAN CELL VOLUME 91.1 fl (80-96); MEAN PLT VOLUME 6.9 fl (7.5-11.1); PLATELET COUNT 263 K/MM3 (134-434)
[2016-04-18 09:11] LABS: CALCIUM 8.6 mg/dl (8.4-10.2); CREATININE 0.8 mg/dl (0.6-1.3)
[2016-04-18] MEDS: SENNOSIDES/DOCUSATE COMBO (SENNA PLUS) TABLET (UD) PO SCH ×2 (10:00→21:08)
[2016-04-18] MEDS: THIAMINE HCL 100 MG TABLET (FP) PO SCH (11:11)
[2016-04-18] MEDS: MULTIVITAMINS (DAILY MVI) TABLET (FP) PO SCH (11:11)
[2016-04-18] MEDS: PANTOPRAZOLE 40 MG TABLET (FP) PO SCH (11:11)
[2016-04-18] MEDS: GABAPENTIN 300 MG CAPSULE (FP) PO SCH ×2 (11:11→21:08)
[2016-04-18] MEDS: oxyCODONE HCL 10 MG SUSTAINED ACTING TABLET PO SCH ×2 (11:12→21:06)
--- NOTE | 2016-04-18 11:18 | PN ---
Progress Note (short form) - Note Progress Note: S: POD #1 s/p R THR mild pain, just completed PT RLE numbness receded O: awake and alert Vital Signs Period Temp Pulse Resp BP Sys/Tse Pulse Ox Last 24 Hr 97.5 F-98.6 F 41-85 12-20 86-114/46-98 96-100 A/P: POD #1 R THR PO analgeiscs prn
[2016-04-18] MEDS ORDERED: PT OWN MED DRAWER 7, Y5N ONE (21:05)
[2016-04-18] MEDS: traZODone HCL 50 MG TABLET (FP) PO SCH (21:07)
[2016-04-18] MEDS: TOPIRAMATE 100 MG TABLET PO SCH (21:08)
[2016-04-19] MEDS: ACETAMINOPHEN 325 MG TABLET (FP) PO SCH ×4 (05:00→21:23)
[2016-04-19] MEDS: oxyCODONE HCL 5 MG TABLET PO PRN ×4 (05:23→21:25)
[2016-04-19] MEDS: SPIRONOLACTONE 25 MG TABLET (FP) PO SCH (06:26)
[2016-04-19] MEDS: ATENOLOL 25 MG TABLET (FP) PO SCH (06:26)
--- NOTE | 2016-04-19 08:19 | PN ---
Progress Note (short form) - Note Progress Note: Ortho Pt seen and examined s/p right charisma thr pod #2 Selected Entries 04/19/16 05:30 Temperature 100.2 F H Pulse Rate 65 Respiratory 19 Rate Blood Pressure 105/46 Laboratory Tests 04/18/16 07:49 WBC 10.0 Hgb 12.6 Hct 38.1 Plt Count 263 dressing saturated, calf soft, nt nvi a/p Dressing changed PT dvt ppx pain control d/c home tomorrow if stable
[2016-04-19 08:41] LABS: MCH 30.2 pg (25.7-33.7); MCHC 33.3 g/dl (32.0-35.9); MEAN CELL VOLUME 90.9 fl (80-96); MEAN PLT VOLUME 7.2 fl (7.5-11.1); PLATELET COUNT 195 K/MM3 (134-434); RDW 13.7 % (11.9-15.9); WHITE BLOOD COUNT 9.5 K/mm3 (4.0-10.0)
[2016-04-19] MEDS: SENNOSIDES/DOCUSATE COMBO (SENNA PLUS) TABLET (UD) PO SCH ×2 (09:00→21:24)
[2016-04-19] MEDS: PANTOPRAZOLE 40 MG TABLET (FP) PO SCH (09:01)
[2016-04-19] MEDS: oxyCODONE HCL 10 MG SUSTAINED ACTING TABLET PO SCH ×2 (09:01→21:23)
[2016-04-19] MEDS: MULTIVITAMINS (DAILY MVI) TABLET (FP) PO SCH (09:02)
[2016-04-19] MEDS: ASPIRIN 325 MG TABLET PO SCH (09:02)
[2016-04-19] MEDS: GABAPENTIN 300 MG CAPSULE (FP) PO SCH ×2 (09:02→21:24)
[2016-04-19] MEDS: THIAMINE HCL 100 MG TABLET (FP) PO SCH (10:00)
[2016-04-19] MEDS ORDERED: PT OWN MED DRAWER 7, Y5N ONE (21:17)
[2016-04-19] MEDS: TOPIRAMATE 100 MG TABLET PO SCH (21:23)
[2016-04-19] MEDS: traZODone HCL 50 MG TABLET (FP) PO SCH (21:23)
[2016-04-20] MEDS: ACETAMINOPHEN 325 MG TABLET (FP) PO SCH ×2 (04:00→09:55)
[2016-04-20] MEDS: ATENOLOL 25 MG TABLET (FP) PO SCH (06:34)
[2016-04-20] MEDS: SPIRONOLACTONE 25 MG TABLET (FP) PO SCH (06:35)
[2016-04-20] MEDS: oxyCODONE HCL 5 MG TABLET PO PRN ×2 (06:36→13:45)
--- NOTE | 2016-04-20 08:07 | PN ---
Progress Note (short form) - Note Progress Note: Ortho Pt seen and examined s/p right charisma thr pod #3 Selected Entries 04/20/16 06:00 Temperature 99.5 F Pulse Rate 72 Respiratory 19 Rate Blood Pressure 107/43 Laboratory Tests 04/19/16 07:00 WBC 9.5 Hgb 10.8 L D Hct 32.5 L Plt Count 195 D slioght drainage on dressing, calf soft, nt nvi a/p Dressing changed PT dvt ppx pain control d/c home today f/u in 1 week
--- NOTE | 2016-04-20 08:08 | DS ---
Physical Examination Vital Signs: Vital Signs Temperature 99.5 F 04/20/16 06:00 Pulse Rate 72 04/20/16 06:00 Respiratory Rate 18 04/20/16 07:46 Blood Pressure 107/43 04/20/16 06:00 O2 Sat by Pulse Oximetry (%) 98 04/20/16 07:46 Labs: CBC, BMP 04/19/16 07:00 04/18/16 07:49 Discharge Summary Reason For Visit: RIGHT HIP OSTEOARTHRITIS Procedures: Principal: s/p right charisma thr Hospital Course: admitted for elective right hip removal of hardware and conversion to charisma thr, uneventful post-op, stable for d/c Condition: Good - Instructions Diet, Activity, Other Instructions: Post-op Instructions-Total Hip Replacement Call the office for a follow-up appointment in 1 week - [phone] Aspirin 325mg daily for 6 weeks. Pain medication was sent into your pharmacy. Apply Graduated Compression Stockings (TEDs) to both lower extremities- remove daily for hygiene ONLY Apply Sequential Compression Device (SCDs) to both Lower extremities remove for PT and hygiene ONLY Apply cold packs to affected area for 15 minutes every 2 hours. Physical Therapist will come to your home for the first 5 days. You will be set up with outpatient PT at your first post-operative visit. Patient may ambulate as tolerated-encourage self care (at least every 2-3 hours while awake) with walker or cane Maintain Aquacel (waterproof) dressing to operative wound (will be removed by surgeon at first office visit) Shower with Aquacel dressing in place-if Aquacel integrity compromised, remove and apply dry sterile dressing and notify Orthopedist. DO NOT SHOWER unless Orthopedists approves without Aquacel dressing CONTACT THE OFFICE FOR ANY CHANGE IN YOUR CONDITION (for example-fever greater than 102 degrees,excessive bleeding from operative site, purulent drainage, severe swelling or pain) GO TO THE EMERGENCY ROOM IF THERE IS A MEDICAL EMERGENCY Hip Precautions: * Keep a rolled towel under affected heel while in bed or chair (to keep knee in extension) * Dependent upon approach: * Posterior - do not cross legs; do not sit on low chairs or toilets. * If you have any questions, please do not hesitate to call the office - . Referrals: Zaki Leonard MD [Staff Physician] - Disposition: VNS/HOME HEALTH CARE - Home Medications Comprehensive Discharge Medication List: Ambulatory Orders Cholecalciferol (Vitamin D3) [Vitamin D3] 1,000 unit PO DAILY capsule 09/02/14 Cyanocobalamin (Vitamin B-12) [Vitamin B-12] 1,000 mcg PO DAILY tablet Topiramate [Topamax -] 100 mg PO HS #30 tablet 03/29/16 Trazodone HCl [Desyrel -] 300 mg PO HS #30 tablet 03/29/16 Atenolol [Tenormin -] 25 mg PO AM #30 tablet 04/03/16 Diltiazem Cd [Cardizem Cd -] 180 mg PO AM #30 cap.cd.24h 04/03/16 Gabapentin [Neurontin -] 300 mg PO TID #90 capsule 04/03/16 Spironolactone [Aldactone -] 25 mg PO AM #30 tablet 04/03/16 Aspirin [ASA -] 325 mg PO DAILY@0800 tablet 04/17/16 Oxycodone HCl/Acetaminophen [Percocet 5-325 mg Tablet -] 1 - 2 tab PO Q6H #50 tab MDD 8 04/17/16 Thiamine HCl [B-1] 100 mg PO DAILY 04/17/16
[2016-04-20] MEDS: ASPIRIN 325 MG TABLET PO SCH (08:38)
--- NOTE | 2016-04-20 08:51 | PATH ---
Surgical Pathology Report Patient Name: PEE ODOM Med. Rec. #: [id number] /Age/Gender: 1955 (Age: 60) / M Account: [id number] Location: [facility] MED-SURG Taken: 04/17/2016 Received: 04/17/2016 Reported: 04/20/2016 Physicians: Zaki Leonard M.D. Specimen(s) Received A: RIGHT FEMORAL HEAD B: RIGHT HIP EXPLANT Clinical History Right hip DJD Final Diagnosis A. BONE, RIGHT FEMORAL HEAD, REPLACEMENT: DEGENERATIVE JOINT DISEASE AND AVASCULAR NECROSIS. B. ORTHOPEDIC HARDWARE, RIGHT HIP, REMOVAL: METALLIC KEVEN AND SCREWS CONSISTENT WITH ORTHOPEDIC HARDWARE (GROSS ONLY) Electronically Signed Sanford Wolff M.D. Gross Description A. Received in formalin, labeled "right femoral head," is a 4.7 x 4.7 x 4.5 cm. femoral head with attached soft tissue and a 0.7 cm in length portion of femoral neck attached. The margin of resection is smooth. No areas of eburnation are identified. The articular cartilage is pollock-yellow, granular and focally lifting away from the underlying trabecular bone. The underlying trabecular bone is yellow and hard. Hydraulic Pile Hammer Operator sections are submitted in one cassette, following decalcification. B. Received fresh, labeled "right hip explant," is a 17 cm in length tapia metallic keven. Also received within the same container are 3 tapia metallic screws ranging from 1.7-11.0 cm in length. No soft tissue is present. No sections are submitted, gross only. 04/18/201604/18/2016
[2016-04-20] MEDS: oxyCODONE HCL 10 MG SUSTAINED ACTING TABLET PO SCH (09:54)
[2016-04-20] MEDS: GABAPENTIN 300 MG CAPSULE (FP) PO SCH (09:55)
[2016-04-20] MEDS: PANTOPRAZOLE 40 MG TABLET (FP) PO SCH (09:55)
[2016-04-20] MEDS: THIAMINE HCL 100 MG TABLET (FP) PO SCH (09:56)
[2016-04-20] MEDS: SENNOSIDES/DOCUSATE COMBO (SENNA PLUS) TABLET (UD) PO SCH (09:56)
[2016-04-20] MEDS: MULTIVITAMINS (DAILY MVI) TABLET (FP) PO SCH (09:56)
[2016-04-20] MEDS ORDERED: PT OWN MED DRAWER 7, Y5N ONE (14:10)
[2016-04-20 14:20] VITALS: BP 89/43; PULSE 58; TEMP 97.9
== END 2016-04-20 15:30 | disposition home health service (06) | DRG 468 ==
LOC: FM/S 04-17 08:06
PROVIDERS: ADMIT Orthopaedic Surgery; ATTEND Orthopaedic Surgery
PROC: 0SP90JZ Removal of Synthetic Substitute from Right Hip Joint, Open Approach (ICD-10-PCS; 2016-04-17)
PROC: 8E0WXBZ Computer Assisted Procedure of Trunk Region (ICD-10-PCS; 2016-04-17)
PROC: 0SR904Z Replacement of Right Hip Joint with Ceramic on Polyethylene Synthetic Substitute, Open Approach (ICD-10-PCS; principal; 2016-04-17 10:00)
DX: M16.11 Unilateral primary osteoarthritis, right hip (principal); I10 Essential (primary) hypertension; M54.5 Low back pain; K70.10 Alcoholic hepatitis without ascites; G62.89 Other specified polyneuropathies; Z96.641 Presence of right artificial hip joint; Z86.718 Personal history of other venous thrombosis and embolism
CPT/HCPCS: 36415; 73502-TC-RT; 80048; 85027; 86922; 88300-TC; 88305-TC; 88311-TC; 94010; 94760; 97116-GP; 97162-PG

== ENCOUNTER 2016-07-23 19:55 | Inpatient (IN) | payer OTHER ==
[2016-07-23 20:27] VITALS: BMI 21.2
--- NOTE | 2016-07-23 20:43 | HP ---
COWS - Scale Resting Pulse: 0= [place] 80 or Below Sweatin= Chills/Flushing Restless Observation: 3= Extraneous Movement Pupil Size: 0= Normal to Room Light Bone or Joint Aches: 2= Severe Diffuse Aches Runny Nose/ Eye Tearin= Nasal Congestion GI Upset > 30mins: 1= Stomach Cramp Tremor Observation: 2= Slight Tremor Visible Yawning Observation: 2= >3x During Session Anxiety or Irritability: 2=Irritable/Anxious Goose Flesh Skin: 0=Smooth Skin COWS Score: 14 CIWA Score - CIWA Score Nausea/Vomitin-Mild Nausea/No Vomiting Muscle Tremors: 4-Moderate,w/Arms Extend Anxiety: 4-Mod. Anxious/Guarded Agitation: 4-Moderately Restless Paroxysmal Sweats: 1-Minimal Palms Moist Orientation: 1-Uncertain about Date Tacttile Disturbances: 0-None Auditory Disturbances: 0-None Visual Disturbances: 0-None Headache: 0-None Present CIWA-Ar Total Score: 15 Admission [facility] - HPI Chief Complaint: WITHDRAWAL SX Allergies/Adverse Reactions: Allergies Allergy/AdvReac Type Severity Reaction Status Date / Time No Known Allergies Allergy Verified 07/23/16 21:14 History of Present Illness: 61 YEARS OLD MALE WITH LONG HISTORY OF ALCOHOL OPIOID DEPENDENCE, HAS HYPERTENSION, NEUROPATHY, ALCOHOL WITHDRAWAL RELATED SEIZURE LAST EPISODE 2014 HAS DEPRESSION IS ADMITTED TO DETOX Exam Limitations: No Limitations - Ebola screening Have you traveled outside of the country in the last 21 days: No (N) Have you had contact with anyone from an Ebola affected area: No Have you been sick,other than usual withdrawal symptoms: No Do you have a fever: No - Review of Systems Constitutional: Chills, Changes in sleep, Weight Stable EENT: reports: No Symptoms Reported, Cataracts (LEFT REMOVED 06/2016) Respiratory: reports: No Symptoms reported Cardiac: reports: No Symptoms Reported GI: reports: Nausea, Poor Fluid Intake, Abdominal cramping : reports: No Symptoms Reported Musculoskeletal: reports: Back Pain, Joint Pain (03/2016 RIGHT HIP REPLACEMENT) , Muscle Pain, Muscle Weakness (LEGS), Neck Pain Integumentary: reports: Change in Color (RIGHT HIP REPLACEMENT 03/2016) Neuro: reports: Seizure (2014), Tremors Endocrine: reports: No Symptoms Reported Hematology: reports: No Symptoms Reported Psychiatric: reports: Judgement Intact, Anxious, Depressed Other Systems: Reviewed and Negative Patient History - Patient Medical History Hx Anemia: No Hx Asthma: No Hx Chronic Obstructive Pulmonary Disease (COPD): No Hx Cancer: No Hx Cardiac Disorders: Yes (possible a-fib) Hx Congestive Heart Failure: No Hx Hypertension: Yes (on med) Hx Hypercholesterolemia: No Hx Pacemaker: No HX Cerebrovascular Accident: No Hx Seizures: Yes (last 2014) Hx Dementia: No Hx Diabetes: No Hx Gastrointestinal Disorders: No Hx Liver Disease: No Hx Genitourinary Disorders: No Hx Sexually Transmitted Disorders: No Hx Renal Disease (ESRD): No Hx Thyroid Disease: No Hx Human Immunodeficiency Virus (HIV): No (never been tested) Hx Hepatitis C: No Hx Depression: Yes Hx Suicide Attempt: No Hx Bipolar Disorder: No Hx Schizophrenia: No - Patient Surgical History Past Surgical History: No Hx Neurologic Surgery: No Hx Cataract Extraction: Yes (R EYE) Hx Cardiac Surgery: No Hx Lung Surgery: No Hx Breast Surgery: No Hx Breast Biopsy: No Hx Abdominal Surgery: No Hx Appendectomy: No Hx Cholecystectomy: No Hx Genitourinary Surgery: No Hx Orthopedic Surgery: Yes (FX R HIP SX IN 2011 + 2016) Other Surgical History: fx: back, rt elbow, rt hip Anesthesia Reaction: No - PPD History Previous Implant?: Yes Documented Results: Negative w/proof Implanted On Prior R Admission?: Yes Date: 05/28/15 Results: 0 MM PPD to be Administered?: Yes - Smoking Cessation Smoking history: Former smoker Have you smoked in the past 12 months: No Aproximately how many cigarettes per day: 0 If you are a former smoker, when did you quit?: 20 YRS AGO Hx Chewing Tobacco Use: No Initiated information on smoking cessation: No - Substance & Tx. History Hx Alcohol Use: Yes Hx Substance Use: Yes Substance Use Type: Alcohol, Opiates Hx Substance Use Treatment: Yes - Substances Abused Alprazolam (Xanax) Route: Oral Frequency: Daily Amount used: 12X24 OZ BEER Age of first use: 14 Date of Last Use: 07/23/16 PERCOCET Route: Oral Frequency: Daily Amount used: 35 MG Age of first use: 61 Date of Last Use: 07/23/16 Family Disease History - Family Disease History Family Disease History: Other: Father (BPH ()), Sister (MS and rare blood disorder. leukemia) Admission Physical Exam [facility] - Vital Signs Vital Signs: Vital Signs - 24 hr 07/23/16 20:23 Temperature 97.2 F L Pulse Rate 61 Respiratory 20 Rate Blood Pressure 155/74 - Physical General Appearance: Yes: Appropriately Dressed, Mild Distress, Thin, Tremorous, Irritable, Sweating, Anxious HEENTM: Yes: Hearing grossly Normal, Normal ENT Inspection, Normocephalic, Normal Voice Respiratory: Yes: Chest Non-Tender, Lungs Clear, Normal Breath Sounds, No Respiratory Distress, No Accessory Muscle Use Neck: Yes: Supple, Trachea in good position Breast: Yes: Breasts Symetrical Cardiology: Yes: Regular Rhythm, S1, S2, Tachycardia Abdominal: Yes: Non Tender, Soft Genitourinary: Yes: Within Normal Limits Back: Yes: Normal Inspection Musculoskeletal: Yes: Gait Steady (CANE), Muscle Pain (RIGHT HIP REPLACEMENT 2016) Extremities: Yes: Non-Tender, Tremors, Other (RIGHT HIP SURGICAL SCAR) Neurological: Yes: Alert, Motor Strength 5/5 (CANE), Depressed Affect Integumentary: Yes: Warm Lymphatic: Yes: Within Normal Limits - Diagnostic (1) Alcohol dependence with withdrawal, uncomplicated Current Visit: Yes Status: Acute (2) Depression Current Visit: Yes Status: Suspected Qualifiers: Depression Type: dysthymia Qualified Code(s): F34.1 - Dysthymic disorder (3) Neuropathy Current Visit: Yes Status: Chronic (4) [place] (hard of hearing) Current Visit: Yes Status: Chronic Qualifiers: Laterality: left Comment: HAS LEFT HEARING AID WITH HIM (5) Use of cane as ambulatory aid Current Visit: Yes Status: Chronic (6) Seizure Current Visit: Yes Status: Chronic (7) Status post right hip replacement Current Visit: Yes Status: Chronic Comment: 03/2016 (8) Cataract Current Visit: Yes Status: Acute Qualifiers: Cataract type: unspecified Laterality: left Qualified Code(s): H26.9 - Unspecified cataract Comment: 06/2016 (9) Pulmonary hypertension Current Visit: Yes Status: Chronic Cleared for Admission [facility] - Detox or Rehab [facility] Level of Care: Medically Managed Detox Regimen/Protocol: Methadone/Librium [facility] Breath Alcohol Content Breath Alcohol Content: 0.386 Urine Drug Screen - Results Drug Screen Negative: No Urine Drug Screen Results: OXY-Oxycodone
[2016-07-23] MEDS ORDERED: guaiFENesin/D-METHORPHAN HB 10 ML UNIT-DOSE CUPS PO PRN (20:58)
[2016-07-23] MEDS ORDERED: METHADONE HCL 10 MG TABLET (FOR DETOX USE ONLY) PO ONE ×2 (20:58→23:00)
[2016-07-23] MEDS ORDERED: MAGNESIUM CITRATE 300 ML BOTTLE PO PRN (20:58)
[2016-07-23] MEDS ORDERED: P-EPHED 60MG/TRIPROLIDI 2.5MG TABLET PO PRN (20:58)
[2016-07-23] MEDS ORDERED: MAGNESIUM HYDROX 2400MG/30ML ORAL SUSPENSION 30 ML CUP PO PRN (20:58)
[2016-07-23] MEDS ORDERED: hydrOXYzine PAMOATE 50 MG CAPSULE (FP) PO PRN (20:58)
[2016-07-23] MEDS ORDERED: LOPERAMIDE HCL 2 MG CAPSULE PO PRN (20:58)
[2016-07-23] MEDS ORDERED: diphenhydrAMINE HCL 50 MG CAPSULE PO PRN (20:58)
[2016-07-23] MEDS ORDERED: MENTHOL/PHENOL 1 EACH UD MM PRN (20:58)
[2016-07-23] MEDS ORDERED: ACETAMINOPHEN 325 MG TABLET (FP) PO PRN (20:58)
[2016-07-23] MEDS ORDERED: IBUPROFEN 400 MG TABLET (FP) PO PRN (20:58)
[2016-07-23] MEDS ORDERED: MAG HYDROX/AL HYDROX/SIMETH 30 ML UNIT-DOSE CUP PO PRN (20:58)
[2016-07-23] MEDS: GABAPENTIN 300 MG CAPSULE (FP) PO SCH (21:44)
[2016-07-23] MEDS: SPIRONOLACTONE 25 MG TABLET (FP) PO SCH (21:45)
[2016-07-23] MEDS: THIAMINE HCL 100 MG TABLET (FP) PO SCH (21:45)
[2016-07-23] MEDS: ATENOLOL 50 MG TABLET (FP) PO SCH (21:45)
[2016-07-23] MEDS: prednisoLONE ACETATE 1% OPHTH SUSP 5 ML BOTTLE OS SCH (22:30)
[2016-07-23] MEDS: chlordiazePOXIDE HCL 25 MG CAPSULE PO SCH (22:44)
[2016-07-24 00:13] LABS: URINE APPEARANCE CLEAR; URINE BILIRUBIN NEGATIVE (NEGATIVE); URINE BLOOD NEGATIVE (NEGATIVE); URINE COLOR STRAW; URINE GLUCOSE (UA) NEGATIVE (NEGATIVE); URINE KETONE NEGATIVE (NEGATIVE); URINE LEUK ESTERASE NEGATIVE (NEGATIVE); URINE NITRITE NEGATIVE (NEGATIVE); URINE PROTEIN NEGATIVE (NEGATIVE); URINE UROBILINOGEN NEGATIVE E.U./dl (0.2-1.0)
[2016-07-24] MEDS: prednisoLONE ACETATE 1% OPHTH SUSP 5 ML BOTTLE OS SCH ×6 (02:26→22:33)
[2016-07-24] MEDS: chlordiazePOXIDE HCL 25 MG CAPSULE PO SCH ×4 (05:48→22:33)
[2016-07-24] MEDS: GABAPENTIN 300 MG CAPSULE (FP) PO SCH ×3 (05:48→22:33)
[2016-07-24] MEDS ORDERED: METHADONE HCL 10 MG TABLET (FOR DETOX USE ONLY) PO SCH (10:00)
[2016-07-24 10:02] LABS: ALBUMIN 3.6 g/dl (3.4-5.0); ANION GAP 11 (8-16); CO2 27 mmol/L (21-32); GLUCOSE,RANDOM 91 mg/dL (74-106); SGOT/AST 26 U/L (15-37); SGPT/ALT 35 U/L (12-78)
[2016-07-24 10:04] LABS: MCH 28.5 pg (25.7-33.7); MCHC 33.6 g/dl (32.0-35.9); MEAN CELL VOLUME 84.8 fl (80-96); MEAN PLT VOLUME 6.5 fl (7.5-11.1); PLATELET COUNT 184 K/MM3 (134-434); RDW 14.5 % (11.9-15.9); WHITE BLOOD COUNT 10.7 K/mm3 (4.0-10.0)
[2016-07-24 10:05] LABS: ALK PHOS 203 U/L (45-117); BILIRUBIN,TOTAL 0.4 mg/dL (0.2-1.0); CALCIUM 8.2 mg/dL (8.5-10.1); COCKROFT - GAULT 99.14; CREATININE 0.7 mg/dL (0.7-1.3); TOT PROT 6.6 g/dl (6.4-8.2)
[2016-07-24] MEDS: PRENATAL VITAMINS W/ FOLIC ACID TABLET (FP) PO SCH (10:25)
[2016-07-24] MEDS: SPIRONOLACTONE 25 MG TABLET (FP) PO SCH (10:25)
[2016-07-24] MEDS: ATENOLOL 50 MG TABLET (FP) PO SCH (10:25)
[2016-07-24] MEDS: TOPIRAMATE 100 MG TABLET PO SCH (10:26)
--- NOTE | 2016-07-24 10:36 | PN ---
[facility] CIWA - CIWA Score Nausea/Vomitin-No Nausea/No Vomiting Muscle Tremors: 6 Anxiety: 5 Agitation: 4-Moderately Restless Paroxysmal Sweats: 1-Minimal Palms Moist Orientation: 0-Oriented Tacttile Disturbances: 3-Moderate Itch/Numb/Burn Auditory Disturbances: 0-None Visual Disturbances: 0-None Headache: 0-None Present CIWA-Ar Total Score: 19 S COWS - Scale Resting Pulse: 0= [place] 80 or Below Sweatin= Chills/Flushing Restless Observation: 3= Extraneous Movement Pupil Size: 0= Normal to Room Light Bone or Joint Aches: 4=Acute Joint/Muscle Pain Runny Nose/ Eye Tearin= Nasal Congestion GI Upset > 30mins: 1= Stomach Cramp Tremor Observation of Outstretched Hands: 4= Gross Tremor/Twitching Yawning Observation: 0= None Anxiety or Irritability: 2=Irritable/Anxious Goose Flesh Skin: 0=Smooth Skin COWS Score: 16 S Progress Note (SOAP) Subjective: ANXIETY,TREMULOUS, SWEATS, FATIGUE,INTERMITTENT SLEEP Objective: 07/24/16 10:35 Vital Signs Temperature 97.0 F L 07/24/16 10:17 Pulse Rate 57 L 07/24/16 10:17 Respiratory Rate 18 07/24/16 10:17 Blood Pressure 120/69 07/24/16 10:17 O2 Sat by Pulse Oximetry (%) Laboratory Last Values WBC 10.7 K/mm3 (4.0-10.0) H D 07/24/16 07:00 RBC 5.04 M/mm3 (4.00-5.60) 07/24/16 07:00 Hgb 14.3 GM/dL (11.7-16.9) D 07/24/16 07:00 Hct 42.7 % (35.4-49) D 07/24/16 07:00 MCV 84.8 fl (80-96) 07/24/16 07:00 MCHC 33.6 g/dl (32.0-35.9) 07/24/16 07:00 RDW 14.5 % (11.9-15.9) 07/24/16 07:00 Plt Count 184 K/MM3 (134-434) 07/24/16 07:00 MPV 6.5 fl (7.5-11.1) L D 07/24/16 07:00 Sodium 138 mmol/L (136-145) 07/24/16 07:00 Potassium 4.3 mmol/L (3.5-5.1) 07/24/16 07:00 Chloride 100 mmol/L (98-107) 07/24/16 07:00 Carbon Dioxide 27 mmol/L (21-32) 07/24/16 07:00 Anion Gap 11 (8-16) 07/24/16 07:00 BUN 6 mg/dL (7-18) L 07/24/16 07:00 Creatinine 0.7 mg/dL (0.7-1.3) D 07/24/16 07:00 Creat Clearance w eGFR > 60 (>60) 07/24/16 07:00 Random Glucose 91 mg/dL (74-106) 07/24/16 07:00 Calcium 8.2 mg/dL (8.5-10.1) L 07/24/16 07:00 Total Bilirubin 0.4 mg/dL (0.2-1.0) D 07/24/16 07:00 AST 26 U/L (15-37) D 07/24/16 07:00 ALT 35 U/L (12-78) 07/24/16 07:00 Alkaline Phosphatase 203 U/L (45-117) H D 07/24/16 07:00 Total Protein 6.6 g/dl (6.4-8.2) 07/24/16 07:00 Albumin 3.6 g/dl (3.4-5.0) 07/24/16 07:00 Urine Color Straw 07/23/16 23:45 Urine Appearance Clear 07/23/16 23:45 Urine pH 5.0 (5.0-8.0) 07/23/16 23:45 Ur Specific [place] <= 1.005 (1.005-1.025) 07/23/16 23:45 Urine Protein Negative (NEGATIVE) 07/23/16 23:45 Urine Glucose (UA) Negative (NEGATIVE) 07/23/16 23:45 Urine Ketones Negative (NEGATIVE) 07/23/16 23:45 Urine Blood Negative (NEGATIVE) 07/23/16 23:45 Urine Nitrite Negative (NEGATIVE) 07/23/16 23:45 Urine Bilirubin Negative (NEGATIVE) 07/23/16 23:45 Urine Urobilinogen Negative E.U./dl (0.2-1.0) 07/23/16 23:45 Ur Leukocyte Esterase Negative (NEGATIVE) 07/23/16 23:45 Assessment: 07/24/16 10:35 WITHDRAWAL SX Plan: CONTINUE DETOX
--- NOTE | 2016-07-24 12:05 | CONSULT ---
[facility] Psychiatric Consult - Data Date of interview: 07/24/16 Admission source: [facility] Identifying data: Readmission to [facility] for this 61 y/o male seeking detox treatment,on ,for alcohol,opiate and xanax dependence.Patient is without children,domiciled (lives with his mother ),disabled and supported on [facility] benefits. Substance Abuse History: - Smoking Cessation. Smoking history: Former smoker. Have you smoked in the past 12 months: No. Aproximately how many cigarettes per day: 0. If you are a former smoker, when did you quit?: 20 YRS AGO. Hx Chewing Tobacco Use: No. Initiated information on smoking cessation: No. - Substance & Tx. History. Hx Alcohol Use: Yes. Hx Substance Use: Yes. Substance Use Type: Alcohol, Opiates. Hx Substance Use Treatment: Yes. - Substances Abused. Alprazolam (Xanax). Route: Oral. Frequency: Daily. Amount used: 12X24 OZ BEER. Age of first use: 14. Date of Last Use: 07/23/16. PERCOCET. Route: Oral. Frequency: Daily. Amount used: 35 MG. Age of first use: 61. Date of Last Use: 07/23/16. Confirmed by patient. Medical History: Hypertension,atrial fibrillation (suspected),osteoarthritis, lower back pain,past history of injuries to cervical and lumbar spine,decreased hearing (left ear),history of multiple sport/work-related fractures (right elbow ,right hip),withdrawal seizures,cataracts in right eye (extracted) and a history of right hip replacement (March 2016). Psychiatric History: No reported history of psychiatric hospitalizations.Diagnosed with MDD and chronic insomnia.Maintained on trazodone 300 mg/hs (taken on 07/22/16 as per self-report).Mr Zacarias is followed by a private psychiatrist in [place].No history of suicide attempts. Physical/Sexual Abuse/Trauma History: Patient denies. Additional Comment: Urine Drug Screen Results: OXY-Oxycodone.Noted. Mental Status Exam - Mental Status Exam Alert and Oriented to: Time, Place, Person Cognitive Function: Good Patient Appearance: Unkempt, Disheveled Mood: Withdrawn, Apprehensive Affect: Mood Congruent Patient Behavior: Fatigued, Appropriate, Cooperative Speech Pattern: Clear, Appropriate Voice Loudness: Normal Thought Process: Goal Oriented Thought Disorder: Not Present Hallucinations: Denies Suicidal Ideation: Denies Homicidal Ideation: Denies Insight/Judgement: Fair Sleep: Poorly, Difficulty falling asleep Appetite: Good Muscle strength/Tone: Normal Gait/Station: Normal Psychiatric Findings - Problem List ([place] 1, 2,3) (1) Alcohol dependence with withdrawal, uncomplicated Current Visit: Yes Status: Acute (2) Opioid dependence Current Visit: Yes Status: Acute (3) Drug-induced mood disorder Current Visit: Yes Status: Acute (4) Pulmonary hypertension Current Visit: Yes Status: Chronic (5) Status post right hip replacement Current Visit: Yes Status: Chronic Comment: 03/2016 (6) History of atrial fibrillation Current Visit: No Status: Suspected (7) Low back pain Current Visit: Yes Status: Chronic (8) Osteoarthritis of right hip Current Visit: No Status: Acute (9) [place] (hard of hearing) Current Visit: Yes Status: Chronic Qualifiers: Laterality: left Comment: HAS LEFT HEARING AID WITH HIM (10) Neuropathy Current Visit: Yes Status: Chronic (11) Use of cane as ambulatory aid Current Visit: Yes Status: Chronic (12) Insomnia Current Visit: Yes Status: Acute - Initial Treatment Plan Initial Treatment Plan: Psychoeducation.Detoxification.Medication : trazodone 150 mg po hs (reduced as caution against oversedation).Dose verified through pharmacy claims (noted filled scripts for trazodone 150 mg # 60 for 30 days on @ [facility]).No scripts will be needed at discharge.Patient is made aware of the risk of priapism.Instructed to stop trazodone/summon immediate medical assistance if occurrence of painful/prolonged erection.Patient is in agreement with instructions/plan of care.Observation.
[2016-07-24] MEDS: chlordiazePOXIDE HCL 25 MG CAPSULE PO PRN (13:53)
--- NOTE | 2016-07-24 15:07 | EKG ---
Test Reason : Blood Pressure : / mmHG Vent. Rate : 056 BPM Atrial Rate : 056 BPM P-R Int : 158 ms QRS Dur : 118 ms QT Int : 456 ms P-R-T Axes : 038 -31 070 degrees QTc Int : 440 ms SINUS BRADYCARDIA LEFT AXIS DEVIATION NON-SPECIFIC INTRA-VENTRICULAR CONDUCTION DELAY NONSPECIFIC ST ABNORMALITY ABNORMAL ECG WHEN COMPARED WITH ECG OF 29-MAR-2016 15:28, VENT. RATE HAS DECREASED BY 38 BPM Confirmed by MARGRET CHUNG, DAILY ([id number]) on 07/24/2016 3:07:07 PM Referred By: Confirmed By:DAILY OSWALD MD
[2016-07-24] MEDS ORDERED: traZODone HCL 100 MG TABLET (FP) PO SCH (22:00)
[2016-07-24] MEDS: traZODone HCL 50 MG TABLET (FP) PO SCH (22:33)
[2016-07-24] MEDS: THIAMINE HCL 100 MG TABLET (FP) PO SCH (22:33)
[2016-07-25] MEDS: prednisoLONE ACETATE 1% OPHTH SUSP 5 ML BOTTLE OS SCH ×6 (02:00→21:15)
[2016-07-25] MEDS: chlordiazePOXIDE HCL 25 MG CAPSULE PO SCH ×3 (05:52→17:22)
[2016-07-25] MEDS: GABAPENTIN 300 MG CAPSULE (FP) PO SCH ×3 (05:52→22:30)
[2016-07-25] MEDS: METHADONE HCL 5 MG TABLET (FOR DETOX USE ONLY) PO SCH (10:44)
[2016-07-25] MEDS: SPIRONOLACTONE 25 MG TABLET (FP) PO SCH (10:44)
[2016-07-25] MEDS: PRENATAL VITAMINS W/ FOLIC ACID TABLET (FP) PO SCH (10:45)
[2016-07-25] MEDS: TOPIRAMATE 100 MG TABLET PO SCH (10:45)
[2016-07-25] MEDS: ATENOLOL 50 MG TABLET (FP) PO SCH (10:45)
--- NOTE | 2016-07-25 11:21 | PN ---
[facility] CIWA - CIWA Score Nausea/Vomitin-No Nausea/No Vomiting Muscle Tremors: 4-Moderate,w/Arms Extend Anxiety: 4-Mod. Anxious/Guarded Agitation: 4-Moderately Restless Paroxysmal Sweats: 1-Minimal Palms Moist Orientation: 0-Oriented Tacttile Disturbances: 3-Moderate Itch/Numb/Burn Auditory Disturbances: 0-None Visual Disturbances: 0-None Headache: 0-None Present CIWA-Ar Total Score: 16 S COWS - Scale Resting Pulse: 0= [place] 80 or Below Sweatin= Chills/Flushing Restless Observation: 3= Extraneous Movement Pupil Size: 2= Moderately Dilated Bone or Joint Aches: 4=Acute Joint/Muscle Pain Runny Nose/ Eye Tearin= Nasal Congestion GI Upset > 30mins: 1= Stomach Cramp Tremor Observation of Outstretched Hands: 1= Tremor [place], Not Seen Yawning Observation: 2= >3x During Session Anxiety or Irritability: 2=Irritable/Anxious Goose Flesh Skin: 0=Smooth Skin COWS Score: 17 [facility] Progress Note (SOAP) Subjective: ANXIETY,TREMORS,SWEAT,FATIGUE. Objective: 07/25/16 11:23 Vital Signs Temperature 95.6 F L 07/25/16 09:49 Pulse Rate 56 L 07/25/16 09:49 Respiratory Rate 18 07/25/16 09:49 Blood Pressure 131/61 07/25/16 09:49 O2 Sat by Pulse Oximetry (%) Laboratory Last Values WBC 10.7 K/mm3 (4.0-10.0) H D 07/24/16 07:00 RBC 5.04 M/mm3 (4.00-5.60) 07/24/16 07:00 Hgb 14.3 GM/dL (11.7-16.9) D 07/24/16 07:00 Hct 42.7 % (35.4-49) D 07/24/16 07:00 MCV 84.8 fl (80-96) 07/24/16 07:00 MCHC 33.6 g/dl (32.0-35.9) 07/24/16 07:00 RDW 14.5 % (11.9-15.9) 07/24/16 07:00 Plt Count 184 K/MM3 (134-434) 07/24/16 07:00 MPV 6.5 fl (7.5-11.1) L D 07/24/16 07:00 Sodium 138 mmol/L (136-145) 07/24/16 07:00 Potassium 4.3 mmol/L (3.5-5.1) 07/24/16 07:00 Chloride 100 mmol/L (98-107) 07/24/16 07:00 Carbon Dioxide 27 mmol/L (21-32) 07/24/16 07:00 Anion Gap 11 (8-16) 07/24/16 07:00 BUN 6 mg/dL (7-18) L 07/24/16 07:00 Creatinine 0.7 mg/dL (0.7-1.3) D 07/24/16 07:00 Creat Clearance w eGFR > 60 (>60) 07/24/16 07:00 Random Glucose 91 mg/dL (74-106) 07/24/16 07:00 Calcium 8.2 mg/dL (8.5-10.1) L 07/24/16 07:00 Total Bilirubin 0.4 mg/dL (0.2-1.0) D 07/24/16 07:00 AST 26 U/L (15-37) D 07/24/16 07:00 ALT 35 U/L (12-78) 07/24/16 07:00 Alkaline Phosphatase 203 U/L (45-117) H D 07/24/16 07:00 Total Protein 6.6 g/dl (6.4-8.2) 07/24/16 07:00 Albumin 3.6 g/dl (3.4-5.0) 07/24/16 07:00 Urine Color Straw 07/23/16 23:45 Urine Appearance Clear 07/23/16 23:45 Urine pH 5.0 (5.0-8.0) 07/23/16 23:45 Ur Specific [place] <= 1.005 (1.005-1.025) 07/23/16 23:45 Urine Protein Negative (NEGATIVE) 07/23/16 23:45 Urine Glucose (UA) Negative (NEGATIVE) 07/23/16 23:45 Urine Ketones Negative (NEGATIVE) 07/23/16 23:45 Urine Blood Negative (NEGATIVE) 07/23/16 23:45 Urine Nitrite Negative (NEGATIVE) 07/23/16 23:45 Urine Bilirubin Negative (NEGATIVE) 07/23/16 23:45 Urine Urobilinogen Negative E.U./dl (0.2-1.0) 07/23/16 23:45 Ur Leukocyte Esterase Negative (NEGATIVE) 07/23/16 23:45 RPR Titer Nonreactive (NONREACTIVE) 07/24/16 07:00 Assessment: 07/25/16 11:24 WITHDRAWAL SX Plan: CONTINUE DETOX
[2016-07-25] MEDS: chlordiazePOXIDE HCL 25 MG CAPSULE PO PRN ×2 (13:56→17:48)
[2016-07-25] MEDS: THIAMINE HCL 100 MG TABLET (FP) PO SCH (22:30)
[2016-07-25] MEDS: chlordiazePOXIDE 5 MG CAPSULE PO SCH (22:31)
[2016-07-25] MEDS: traZODone HCL 50 MG TABLET (FP) PO SCH (22:31)
[2016-07-26] MEDS: prednisoLONE ACETATE 1% OPHTH SUSP 5 ML BOTTLE OS SCH ×6 (02:15→21:15)
[2016-07-26] MEDS: chlordiazePOXIDE 5 MG CAPSULE PO SCH ×3 (06:14→17:11)
[2016-07-26] MEDS: GABAPENTIN 300 MG CAPSULE (FP) PO SCH ×3 (06:14→22:37)
[2016-07-26] MEDS: ATENOLOL 50 MG TABLET (FP) PO SCH (10:35)
[2016-07-26] MEDS: TOPIRAMATE 100 MG TABLET PO SCH (10:35)
[2016-07-26] MEDS: SPIRONOLACTONE 25 MG TABLET (FP) PO SCH (10:35)
[2016-07-26] MEDS: METHADONE HCL 5 MG TABLET (FOR DETOX USE ONLY) PO SCH (10:35)
[2016-07-26] MEDS: PRENATAL VITAMINS W/ FOLIC ACID TABLET (FP) PO SCH (10:35)
--- NOTE | 2016-07-26 11:44 | PN ---
S Progress Note (SOAP) Subjective: ANXIETY,SWEATS,SLIGHT TREMORS. Objective: 07/26/16 11:43 Vital Signs Temperature 96.1 F L 07/26/16 09:30 Pulse Rate 56 L 07/26/16 09:30 Respiratory Rate 18 07/26/16 09:30 Blood Pressure 118/64 07/26/16 09:30 O2 Sat by Pulse Oximetry (%) Laboratory Last Values WBC 10.7 K/mm3 (4.0-10.0) H D 07/24/16 07:00 RBC 5.04 M/mm3 (4.00-5.60) 07/24/16 07:00 Hgb 14.3 GM/dL (11.7-16.9) D 07/24/16 07:00 Hct 42.7 % (35.4-49) D 07/24/16 07:00 MCV 84.8 fl (80-96) 07/24/16 07:00 MCHC 33.6 g/dl (32.0-35.9) 07/24/16 07:00 RDW 14.5 % (11.9-15.9) 07/24/16 07:00 Plt Count 184 K/MM3 (134-434) 07/24/16 07:00 MPV 6.5 fl (7.5-11.1) L D 07/24/16 07:00 Sodium 138 mmol/L (136-145) 07/24/16 07:00 Potassium 4.3 mmol/L (3.5-5.1) 07/24/16 07:00 Chloride 100 mmol/L (98-107) 07/24/16 07:00 Carbon Dioxide 27 mmol/L (21-32) 07/24/16 07:00 Anion Gap 11 (8-16) 07/24/16 07:00 BUN 6 mg/dL (7-18) L 07/24/16 07:00 Creatinine 0.7 mg/dL (0.7-1.3) D 07/24/16 07:00 Creat Clearance w eGFR > 60 (>60) 07/24/16 07:00 Random Glucose 91 mg/dL (74-106) 07/24/16 07:00 Calcium 8.2 mg/dL (8.5-10.1) L 07/24/16 07:00 Total Bilirubin 0.4 mg/dL (0.2-1.0) D 07/24/16 07:00 AST 26 U/L (15-37) D 07/24/16 07:00 ALT 35 U/L (12-78) 07/24/16 07:00 Alkaline Phosphatase 203 U/L (45-117) H D 07/24/16 07:00 Total Protein 6.6 g/dl (6.4-8.2) 07/24/16 07:00 Albumin 3.6 g/dl (3.4-5.0) 07/24/16 07:00 Urine Color Straw 07/23/16 23:45 Urine Appearance Clear 07/23/16 23:45 Urine pH 5.0 (5.0-8.0) 07/23/16 23:45 Ur Specific [place] <= 1.005 (1.005-1.025) 07/23/16 23:45 Urine Protein Negative (NEGATIVE) 07/23/16 23:45 Urine Glucose (UA) Negative (NEGATIVE) 07/23/16 23:45 Urine Ketones Negative (NEGATIVE) 07/23/16 23:45 Urine Blood Negative (NEGATIVE) 07/23/16 23:45 Urine Nitrite Negative (NEGATIVE) 07/23/16 23:45 Urine Bilirubin Negative (NEGATIVE) 07/23/16 23:45 Urine Urobilinogen Negative E.U./dl (0.2-1.0) 07/23/16 23:45 Ur Leukocyte Esterase Negative (NEGATIVE) 07/23/16 23:45 RPR Titer Nonreactive (NONREACTIVE) 07/24/16 07:00 Assessment: 07/26/16 11:43 WITHDRAWAL SX Plan: CONTINUE DETOX
[2016-07-26] MEDS: chlordiazePOXIDE HCL 25 MG CAPSULE PO PRN ×2 (14:07→20:41)
[2016-07-26] MEDS: THIAMINE HCL 100 MG TABLET (FP) PO SCH (22:37)
[2016-07-26] MEDS: chlordiazePOXIDE HCL 10 MG CAPSULE PO SCH (22:37)
[2016-07-26] MEDS: traZODone HCL 50 MG TABLET (FP) PO SCH (22:38)
[2016-07-27] MEDS: prednisoLONE ACETATE 1% OPHTH SUSP 5 ML BOTTLE OS SCH ×6 (03:54→22:25)
[2016-07-27] MEDS: chlordiazePOXIDE HCL 10 MG CAPSULE PO SCH ×3 (06:16→17:13)
[2016-07-27] MEDS: GABAPENTIN 300 MG CAPSULE (FP) PO SCH ×3 (07:10→22:26)
[2016-07-27] MEDS ORDERED: METHADONE HCL 10 MG TABLET (FOR DETOX USE ONLY) PO SCH (10:00)
[2016-07-27] MEDS: TOPIRAMATE 100 MG TABLET PO SCH (11:02)
[2016-07-27] MEDS: SPIRONOLACTONE 25 MG TABLET (FP) PO SCH (11:02)
[2016-07-27] MEDS: PRENATAL VITAMINS W/ FOLIC ACID TABLET (FP) PO SCH (11:02)
[2016-07-27] MEDS: ATENOLOL 50 MG TABLET (FP) PO SCH (11:02)
--- NOTE | 2016-07-27 11:46 | PN ---
[facility] Progress Note (SOAP) Subjective: DETOX PROCEEDING WELL. DECREASED TREMORS. Objective: 07/27/16 11:46 Vital Signs Temperature 96.8 F L 07/27/16 10:24 Pulse Rate 76 07/27/16 10:24 Respiratory Rate 18 07/27/16 10:24 Blood Pressure 144/74 07/27/16 10:24 O2 Sat by Pulse Oximetry (%) Assessment: 07/27/16 11:46 WITHDRAWAL SX Plan: CONTINUE DETOX
[2016-07-27] MEDS: traZODone HCL 50 MG TABLET (FP) PO SCH (22:26)
[2016-07-27] MEDS: THIAMINE HCL 100 MG TABLET (FP) PO SCH (22:26)
[2016-07-28] MEDS: prednisoLONE ACETATE 1% OPHTH SUSP 5 ML BOTTLE OS SCH ×3 (02:00→10:35)
[2016-07-28] MEDS ORDERED: METHADONE HCL 5 MG TABLET (FOR DETOX USE ONLY) PO SCH (06:00)
[2016-07-28] MEDS: GABAPENTIN 300 MG CAPSULE (FP) PO SCH (06:12)
[2016-07-28 06:32] VITALS: BP 126/72; PULSE 66; TEMP 96.2
[2016-07-28] MEDS: SPIRONOLACTONE 25 MG TABLET (FP) PO SCH (10:35)
[2016-07-28] MEDS: ATENOLOL 50 MG TABLET (FP) PO SCH (10:35)
[2016-07-28] MEDS: TOPIRAMATE 100 MG TABLET PO SCH (10:35)
[2016-07-28] MEDS: PRENATAL VITAMINS W/ FOLIC ACID TABLET (FP) PO SCH (10:35)
--- NOTE | 2016-07-28 14:29 | DS ---
[facility] Detox Discharge Summary Admission Date: 07/23/16 Discharge Date: 07/28/16 - History Present History: Alcohol Dependence, Sedative Dependence Additional Comments: ADVISED PATIENT TO FOLLOW-UP WITH [facility] AFTER DISCHARGE FROM DETOX FOR GENERAL MEDICAL ASSESSMENT AND FOR ABNORMAL ADMISSION LAB VALUES. Pertinent Past History: Pulmonary Hypertension, Cataract, HTN, Depression, Hx. of Seizure, Osteoarthritis of Right Hip, Neuropathy. - Physical Exam Results Vital Signs: Vital Signs Temperature 96.2 F L 07/28/16 06:31 Pulse Rate 66 07/28/16 06:31 Respiratory Rate 18 07/28/16 06:31 Blood Pressure 126/72 07/28/16 06:31 O2 Sat by Pulse Oximetry (%) Pertinent Admission Physical Exam Findings: WITHDRAWAL SYMPTOMS. Laboratory Last Values WBC 10.7 K/mm3 (4.0-10.0) H D 07/24/16 07:00 RBC 5.04 M/mm3 (4.00-5.60) 07/24/16 07:00 Hgb 14.3 GM/dL (11.7-16.9) D 07/24/16 07:00 Hct 42.7 % (35.4-49) D 07/24/16 07:00 MCV 84.8 fl (80-96) 07/24/16 07:00 MCHC 33.6 g/dl (32.0-35.9) 07/24/16 07:00 RDW 14.5 % (11.9-15.9) 07/24/16 07:00 Plt Count 184 K/MM3 (134-434) 07/24/16 07:00 MPV 6.5 fl (7.5-11.1) L D 07/24/16 07:00 Sodium 138 mmol/L (136-145) 07/24/16 07:00 Potassium 4.3 mmol/L (3.5-5.1) 07/24/16 07:00 Chloride 100 mmol/L (98-107) 07/24/16 07:00 Carbon Dioxide 27 mmol/L (21-32) 07/24/16 07:00 Anion Gap 11 (8-16) 07/24/16 07:00 BUN 6 mg/dL (7-18) L 07/24/16 07:00 Creatinine 0.7 mg/dL (0.7-1.3) D 07/24/16 07:00 Creat Clearance w eGFR > 60 (>60) 07/24/16 07:00 Random Glucose 91 mg/dL (74-106) 07/24/16 07:00 Calcium 8.2 mg/dL (8.5-10.1) L 07/24/16 07:00 Total Bilirubin 0.4 mg/dL (0.2-1.0) D 07/24/16 07:00 AST 26 U/L (15-37) D 07/24/16 07:00 ALT 35 U/L (12-78) 07/24/16 07:00 Alkaline Phosphatase 203 U/L (45-117) H D 07/24/16 07:00 Total Protein 6.6 g/dl (6.4-8.2) 07/24/16 07:00 Albumin 3.6 g/dl (3.4-5.0) 07/24/16 07:00 Urine Color Straw 07/23/16 23:45 Urine Appearance Clear 07/23/16 23:45 Urine pH 5.0 (5.0-8.0) 07/23/16 23:45 Ur Specific [place] <= 1.005 (1.005-1.025) 07/23/16 23:45 Urine Protein Negative (NEGATIVE) 07/23/16 23:45 Urine Glucose (UA) Negative (NEGATIVE) 07/23/16 23:45 Urine Ketones Negative (NEGATIVE) 07/23/16 23:45 Urine Blood Negative (NEGATIVE) 07/23/16 23:45 Urine Nitrite Negative (NEGATIVE) 07/23/16 23:45 Urine Bilirubin Negative (NEGATIVE) 07/23/16 23:45 Urine Urobilinogen Negative E.U./dl (0.2-1.0) 07/23/16 23:45 Ur Leukocyte Esterase Negative (NEGATIVE) 07/23/16 23:45 RPR Titer Nonreactive (NONREACTIVE) 07/24/16 07:00 LABS NOTED. - Treatment Hospital Course: Detox Protocol Followed, Detoxed Safely, Responded well, Discharged Condition Good Patient has Accepted a Rehab Referral to: NO - PT. ELECTING TO GO HOME; WILL ATTEND OUTPATIENT AA MEETINGS. - Medication Discharge Medications: Ambulatory Orders Cholecalciferol (Vitamin D3) [Vitamin D3] 1,000 unit PO DAILY capsule 09/02/14 Cyanocobalamin (Vitamin B-12) [Vitamin B-12] 1,000 mcg PO DAILY tablet Thiamine HCl [B-1] 100 mg PO DAILY 04/17/16 - Diagnosis (1) Alcohol dependence with withdrawal, uncomplicated Status: Acute (2) Alcohol related seizure Status: Acute (3) Cataract Status: Chronic Qualifiers: Cataract type: unspecified Laterality: left Qualified Code(s): H26.9 - Unspecified cataract (4) Drug-induced mood disorder Status: Acute (5) Insomnia Status: Chronic Qualifiers: Insomnia type: unspecified Qualified Code(s): G47.00 - Insomnia, unspecified (6) Nicotine dependence Status: Chronic Qualifiers: Nicotine product type: cigarettes Substance use status: uncomplicated Qualified Code(s): F17.210 - Nicotine dependence, cigarettes, uncomplicated (7) Osteoarthritis of right hip Status: Chronic Qualifiers: Osteoarthritis type: unspecified Qualified Code(s): M16.11 - Unilateral primary osteoarthritis, right hip (8) DEPRESSION Status: Chronic (9) [place] (hard of hearing) Status: Chronic Qualifiers: Hearing loss type: other Laterality: left Contralateral hearing status: unspecified Qualified Code(s): H91.8X2 - Other specified hearing loss, left ear (10) Neuropathy Status: Chronic (11) Pulmonary hypertension Status: Chronic (12) Seizure Status: Chronic (13) Status post right hip replacement Status: Chronic (14) Use of cane as ambulatory aid Status: Chronic (15) Depression Status: Suspected Qualifiers: Depression Type: dysthymia Qualified Code(s): F34.1 - Dysthymic disorder (16) History of atrial fibrillation Status: Suspected - AMA Did Patient Leave Against Medical Advice: No
== END 2016-07-28 11:40 | disposition home or self-care (01) | DRG 897 ==
LOC: YASAS 19:55 → Y3N 20:47
PROVIDERS: ADMIT Internal Medicine Addiction Medicine; ATTEND Internal Medicine Addiction Medicine
PROC: HZ2ZZZZ Detoxification Services for Substance Abuse Treatment (ICD-10-PCS; principal; 2016-07-28)
DX: F10.230 Alcohol dependence with withdrawal, uncomplicated (principal); G40.509 Epileptic seizures related to external causes, not intractable, without status epilepticus; F17.210 Nicotine dependence, cigarettes, uncomplicated; F19.24 Other psychoactive substance dependence with psychoactive substance-induced mood disorder; F34.1 Dysthymic disorder; G47.00 Insomnia, unspecified; I27.2 Other secondary pulmonary hypertension; H91.8X2 Other specified hearing loss, left ear; G62.9 Polyneuropathy, unspecified; H26.9 Unspecified cataract; M54.5 Low back pain; M16.11 Unilateral primary osteoarthritis, right hip; Z96.641 Presence of right artificial hip joint; R26.2 Difficulty in walking, not elsewhere classified; Z99.89 Dependence on other enabling machines and devices
CPT/HCPCS: 36415; 80053; 81003; 85027; 86593; 93005; 93010

== ENCOUNTER 2017-08-21 13:29 | Inpatient (IN) | payer OTHER ==
[2017-08-21 17:44] VITALS: BMI 27.3
--- NOTE | 2017-08-21 18:48 | HP ---
CIWA Score - CIWA Score Nausea/Vomitin Muscle Tremors: 4-Moderate,w/Arms Extend Anxiety: 4-Mod. Anxious/Guarded Agitation: 3 Paroxysmal Sweats: 1-Minimal Palms Moist Orientation: 0-Oriented Tacttile Disturbances: 2-Mild Itch/Numbness/Burn (neuropathy) Auditory Disturbances: 0-None Visual Disturbances: 0-None Headache: 0-None Present CIWA-Ar Total Score: 16 Admission ROS S - [facility] Chief Complaint: alcohol withdrawal symptoms Allergies/Adverse Reactions: Allergies Allergy/AdvReac Type Severity Reaction Status Date / Time No Known Allergies Allergy Verified 07/23/16 21:14 History of Present Illness: Patient is a 62 yo male with hx alcohol dependence with delirium tremors, and seizures with last episode unable to recall. PMHX: A-fib, HTN, neuropathy BL lower extremities, spine fx (L), Right hip replacement, (R) broken elbows, anxiety, depression. Denies suicidal / homicidal ideation. Denies hx of suicide attempt. Longest period of sobriety 1 year and 4 months reports relapsed two weeks ago. Patient is aware opioids are not use to treat pain on the unit, patient in agreement to take alternative meds to manage back pain. Reference #: [id number] Others' Prescriptions Patient Name: Michael Zacarias Date: 1955 Address: [address] [place] [address] [place] [address] Sex: Male Rx Written Rx Dispensed Drug Quantity Days Supply Prescriber Name 08/19/2017 08/19/2017 oxycodone-acetaminophen 10-325 mg tablet 90 30 Dante Ambrosio MD 05/30/2017 08/05/2017 lyrica 100 mg capsule 90 30 Heather Paniagua MD 07/22/2017 07/22/2017 oxycodone-acetaminophen 10-325 mg tablet 90 30 Dante Ambrosio MD 05/30/2017 07/09/2017 lyrica 100 mg capsule 90 30 Heather Paniagua MD 05/30/2017 06/13/2017 lyrica 100 mg capsule 90 30 Heather Paniagua MD 04/11/2017 05/03/2017 lyrica 100 mg capsule 90 30 Heather Paniagua MD 10/30/2016 02/25/2017 lyrica 100 mg capsule 90 30 Heather Paniagua MD 10/30/2016 01/28/2017 lyrica 100 mg capsule 90 30 Heather Paniagua MD 10/30/2016 01/01/2017 lyrica 100 mg capsule 90 30 Heather Paniagua MD 10/30/2016 11/15/2016 lyrica 100 mg capsule 90 30 Heather Paniagua MD Patient Name: Michael Zacarias Date: 1955 Address: [address] [place] [address] Sex: Male Rx Written Rx Dispensed Drug Quantity Days Supply Prescriber Name 06/24/2017 06/24/2017 oxycodone-acetaminophen 10-325 mg tablet 60 30 Dante Ambrosio MD 06/10/2017 06/10/2017 lyrica 100 mg capsule 21 7 Heather Paniagua MD 04/29/2017 04/29/2017 oxycodone-acetaminophen 10-325 mg tablet 30 30 Dante Ambrosio MD 04/01/2017 04/01/2017 oxycodone-acetaminophen 10-325 mg tablet 50 25 Dante Ambrosio MD 03/04/2017 03/04/2017 oxycodone-acetaminophen 10-325 mg tablet 70 30 Dante Ambrosio MD 02/04/2017 02/04/2017 oxycodone-acetaminophen 10-325 mg tablet 90 30 Dante Ambrosio MD 01/07/2017 01/07/2017 oxycodone-acetaminophen 7.5-325 mg tablet 90 30 Dante Ambrosio MD 12/10/2016 12/10/2016 oxycodone-acetaminophen 7.5-325 mg tablet 90 30 Dante Ambrosio MD 10/17/2016 11/12/2016 oxycodone-acetaminophen 5-325 mg tab 80 26 Dante Ambrosio MD 10/02/2016 10/31/2016 lyrica 100 mg capsule 90 30 Heather Paniagua MD 10/15/2016 10/15/2016 oxycodone-acetaminophen 5-325 mg tab 40 5 Dante Ambrosio MD 10/02/2016 10/04/2016 lyrica 100 mg capsule 90 30 Heather Paniagua MD 09/04/2016 09/05/2016 lyrica 100 mg capsule Exam Limitations: No Limitations - Ebola screening Have you traveled outside of the country in the last 21 days: No (N) Have you had contact with anyone from an Ebola affected area: No Have you been sick,other than usual withdrawal symptoms: No Do you have a fever: No - Review of Systems Constitutional: Diaphoresis EENT: reports: Hearing Loss (bilateral hearing aids) Respiratory: reports: No Symptoms reported Cardiac: reports: No Symptoms Reported GI: reports: Nausea, Vomiting : reports: No Symptoms Reported Musculoskeletal: reports: See HPI, Other (uses cane for ambualtion) Integumentary: reports: Other (multiple bruisees on both arms) Neuro: reports: Numbness (both feet hx neuropathy), Tremors Endocrine: reports: Increased Thirst Hematology: reports: No Symptoms Reported Psychiatric: reports: Orientated x3, Anxious Other Systems: Reviewed and Negative Patient History - Patient Medical History Hx Anemia: No Hx Asthma: No Hx Chronic Obstructive Pulmonary Disease (COPD): No Hx Cancer: No Hx Cardiac Disorders: Yes ( a-fib) Hx Congestive Heart Failure: No Hx Hypertension: Yes (on med) Hx Hypercholesterolemia: No Hx Pacemaker: No HX Cerebrovascular Accident: No Hx Seizures: Yes (last 2014) Hx Dementia: No Hx Diabetes: No Hx Gastrointestinal Disorders: No Hx Liver Disease: No Hx Genitourinary Disorders: No Hx Sexually Transmitted Disorders: No Hx Renal Disease (ESRD): No Hx Thyroid Disease: No Hx Human Immunodeficiency Virus (HIV): No (never been tested) Hx Hepatitis C: No Hx Depression: Yes Hx Suicide Attempt: No Hx Bipolar Disorder: Yes Hx Schizophrenia: No - Patient Surgical History Past Surgical History: No Hx Neurologic Surgery: No Hx Cataract Extraction: Yes (R EYE) Hx Cardiac Surgery: No Hx Lung Surgery: No Hx Breast Surgery: No Hx Breast Biopsy: No Hx Abdominal Surgery: No Hx Appendectomy: No Hx Cholecystectomy: No Hx Genitourinary Surgery: No Hx Section: No Hx Orthopedic Surgery: Yes (FX R HIP SX IN 2011 + 2016) Hx Hysterectomy: No Other Surgical History: fx: back, rt elbow, rt hip Anesthesia Reaction: No - PPD History Previous Implant?: Yes Documented Results: Negative w/proof Date: 07/25/16 Results: 0 MM PPD to be Administered?: Yes - Smoking Cessation Smoking history: Former smoker Have you smoked in the past 12 months: No Aproximately how many cigarettes per day: 0 If you are a former smoker, when did you quit?: 20 YRS AGO Hx Chewing Tobacco Use: No Initiated information on smoking cessation: No - Substance & Tx. History Hx Alcohol Use: Yes Hx Substance Use: Yes Substance Use Type: Alcohol Hx Substance Use Treatment: Yes ([facility] July 2016) - Substances Abused Alcohol Route: Oral Frequency: Daily Amount used: 1 pint vodka Age of first use: 16 Date of Last Use: 08/21/17 Family Disease History - Family Disease History Family Disease History: Other: Father (BPH ()), Sister (MS and rare blood disorder. leukemia) Admission Physical Exam [facility] - Vital Signs Vital Signs: Vital Signs - 24 hr 08/21/17 17:42 Temperature 98.7 F Pulse Rate 97 H Respiratory 16 Rate Blood Pressure 141/77 - Physical General Appearance: Yes: Disheveled, Mild Distress, Alcohol on Breath, Tremorous , Anxious HEENTM: Yes: EOMI, Normal ENT Inspection, Normocephalic, Normal Voice, MUKESH, Pharynx Normal, Tm's normal, Other (bilateral hearing loss) Respiratory: Yes: Chest Non-Tender, Lungs Clear, Normal Breath Sounds, No Respiratory Distress, No Accessory Muscle Use Neck: Yes: Within Normal Limits Breast: Yes: Breast Exam Deferred Cardiology: Yes: Regular Rhythm, Regular Rate Abdominal: Yes: Normal Bowel Sounds, Non Tender, Soft, Protuberent Genitourinary: Yes: Within Normal Limits Back: Yes: Normal Inspection Musculoskeletal: Yes: full range of Motion, Gait Steady, Back pain, Other ( ambulates with cane, shoulder pain) Extremities: Yes: Normal Capillary Refill, Normal Inspection, Normal Range of Motion, Tremors Neurological: Yes: box toe cementer II-XII NML intact, Fully Oriented, Alert, Motor Strength 5/5, Depressed Affect Integumentary: Yes: Normal Color, Warm, Diaphoresis, Other (lesion on right arm) Lymphatic: Yes: Within Normal Limits - Diagnostic (1) Alcohol dependence with withdrawal, uncomplicated Current Visit: Yes Status: Acute (2) Alcohol related seizure Current Visit: Yes Status: Acute (3) [place] (hard of hearing) Current Visit: Yes Status: Chronic Qualifiers: Hearing loss type: other Laterality: left Contralateral hearing status: unspecified Qualified Code(s): H91.8X2 - Other specified hearing loss, left ear Comment: HAS LEFT HEARING AID WITH HIM (4) Insomnia Current Visit: Yes Status: Chronic Qualifiers: Insomnia type: unspecified Qualified Code(s): G47.00 - Insomnia, unspecified (5) Low back pain Current Visit: Yes Status: Chronic Qualifiers: Chronicity: chronic Back pain laterality: midline Sciatica presence: without sciatica Qualified Code(s): M54.5 - Low back pain; G89.29 - Other chronic pain (6) Neuropathy Current Visit: Yes Status: Chronic (7) Nicotine dependence Current Visit: Yes Status: Chronic Qualifiers: Nicotine product type: cigarettes Substance use status: uncomplicated Qualified Code(s): F17.210 - Nicotine dependence, cigarettes, uncomplicated (8) Osteoarthritis of right hip Current Visit: Yes Status: Chronic Qualifiers: Osteoarthritis type: unspecified Qualified Code(s): M16.11 - Unilateral primary osteoarthritis, right hip (9) Pulmonary hypertension Current Visit: Yes Status: Chronic (10) Use of cane as ambulatory aid Current Visit: Yes Status: Chronic (11) History of atrial fibrillation Current Visit: Yes Status: Chronic Cleared for Admission [facility] - Detox or Rehab [facility] Level of Care: Medically Managed Detox Regimen/Protocol: Librium S Breath Alcohol Content Breath Alcohol Content: 0.386 Urine Drug Screen - Results Urine Drug Screen Results: OXY-Oxycodone
[2017-08-21] MEDS ORDERED: TIZANIDINE HCL 2 MG TABLET PO PRN (19:30)
[2017-08-21] MEDS ORDERED: guaiFENesin/D-METHORPHAN HB 10 ML UNIT-DOSE CUPS PO PRN (19:31)
[2017-08-21] MEDS ORDERED: chlordiazePOXIDE HCL 25 MG CAPSULE PO PRN (19:31)
[2017-08-21] MEDS ORDERED: MAGNESIUM CITRATE 300 ML BOTTLE PO PRN (19:31)
[2017-08-21] MEDS ORDERED: IBUPROFEN 400 MG TABLET (FP) PO PRN ×2 (19:31→19:34)
[2017-08-21] MEDS ORDERED: LOPERAMIDE HCL 2 MG CAPSULE PO PRN (19:31)
[2017-08-21] MEDS ORDERED: MENTHOL/PHENOL 1 EACH UD MM PRN (19:31)
[2017-08-21] MEDS ORDERED: MAGNESIUM HYDROX 2400MG/30ML ORAL SUSPENSION 30 ML CUP PO PRN (19:31)
[2017-08-21] MEDS ORDERED: chlordiazePOXIDE HCL 25 MG CAPSULE PO ONE (19:31)
[2017-08-21] MEDS ORDERED: P-EPHED 60MG/TRIPROLIDI 2.5MG TABLET PO PRN (19:31)
[2017-08-21] MEDS ORDERED: ACETAMINOPHEN 325 MG TABLET (FP) PO PRN (19:31)
[2017-08-21] MEDS: MELATONIN 5 MG TABLETS PO PRN (21:54)
[2017-08-21] MEDS: THIAMINE HCL 100 MG TABLET (FP) PO SCH (21:55)
[2017-08-21] MEDS: LIDOCAINE PATCH REMOVAL MC SCH (22:06)
[2017-08-21] MEDS: LIDOCAINE 5% TOPICAL PATCH TP SCH (22:06)
[2017-08-21] MEDS: chlordiazePOXIDE HCL 25 MG CAPSULE PO SCH (23:08)
[2017-08-22] MEDS: chlordiazePOXIDE HCL 25 MG CAPSULE PO SCH ×4 (05:56→22:27)
[2017-08-22 06:26] LABS: URINE APPEARANCE SLCLOUDY; URINE BILIRUBIN NEGATIVE (<2.0 mg/dL); URINE BLOOD NEGATIVE (NEGATIVE); URINE COLOR YELLOW; URINE GLUCOSE (UA) NEGATIVE (NEGATIVE); URINE KETONE NEGATIVE (NEGATIVE); URINE NITRITE NEGATIVE (NEGATIVE); URINE PROTEIN NEGATIVE (NEGATIVE); URINE UROBILINOGEN NEGATIVE mg/dL (0.2-1.0)
[2017-08-22 06:31] LABS: URINE LEUK ESTERASE 1+ (NEGATIVE)
[2017-08-22 09:22] LABS: EPI CELLS RARE /HPF (FEW); URINE BACTERIA RARE /hpf (NONE SEEN); URINE HYALINE CAST 8 /lpf; URINE MUCUS RARE
[2017-08-22 10:18] LABS: HEMATOCRIT 45.4 % (35.4-49); HEMOGLOBIN 15.5 GM/dL (11.7-16.9); MCH 30.1 pg (25.7-33.7); MCHC 34.1 g/dl (32.0-35.9); MEAN CELL VOLUME 88.1 fl (80-96); MEAN PLT VOLUME 7.3 fl (7.5-11.1); PLATELET COUNT 164 K/MM3 (134-434); RBC 5.15 M/mm3 (4.00-5.60); RDW 14.6 % (11.9-15.9); WHITE BLOOD COUNT 5.7 K/mm3 (4.0-10.0)
--- NOTE | 2017-08-22 10:36 | CONSULT ---
[facility] Psychiatric Consult - Data Date of interview: 08/22/17 Admission source: [facility] Identifying data: This is 62 years old male with no psychiatric hospitalization history, divorsed, living with Mother, on SSD, with history of alcohol, dependence , Opioids abuse history, seeking for detox reporting withdrawal symptoms. Substance Abuse History: - Smoking Cessation. Smoking history: Former smoker. Have you smoked in the past 12 months: No. Aproximately how many cigarettes per day: 0. If you are a former smoker, when did you quit?: 20 YRS AGO. Hx Chewing Tobacco Use: No. Initiated information on smoking cessation: No. - Substance & Tx. History. Hx Alcohol Use: Yes. Hx Substance Use: Yes. Substance Use Type: Alcohol. Hx Substance Use Treatment: Yes ([facility] July 2016). - Substances Abused. Alcohol. Route: Oral. Frequency: Daily. Amount used : 1 pint vodka. Age of first use: 16. Date of Last Use: 08/21/17 Medical History: Ambulate with cane after Right Hip replacement on 2016, A.Fib history, Weight loss history, Psychiatric History: Patient reports historyn of [place] disorder, reports no history of psychiatric hospitalizations, reports taking prior to admission: Trazodone 300mg po qhs. Topamax 200mg po qhs Physical/Sexual Abuse/Trauma History: Denies Additional Comment: Trazodone 300mg po qhs. Topamax 200mg po qhs Mental Status Exam - Mental Status Exam Alert and Oriented to: Place, Person Cognitive Function: Fair Patient Appearance: Well Groomed Mood: Apprehensive Affect: Mood Congruent Patient Behavior: Cooperative Speech Pattern: Appropriate Voice Loudness: Mildly Loud Thought Process: Goal Oriented Thought Disorder: Being Controlled Hallucinations: Denies Suicidal Ideation: Denies Homicidal Ideation: Denies Insight/Judgement: Fair Sleep: Difficulty falling asleep Appetite: Weight loss Muscle strength/Tone: Mild Hypertonicity Gait/Station: Deferred Additional Comments: Trazodone 300mg po qhs. Topamax 200mg po qhs Psychiatric Findings - Problem List ([place] 1, 2,3) (1) Bipolar II disorder Current Visit: Yes Status: Acute (2) Alcohol dependence with withdrawal, uncomplicated Current Visit: Yes Status: Acute (3) [place] (hard of hearing) Current Visit: Yes Status: Chronic Qualifiers: Hearing loss type: other Laterality: left Contralateral hearing status: unspecified Qualified Code(s): H91.8X2 - Other specified hearing loss, left ear Comment: HAS LEFT HEARING AID WITH HIM (4) Nicotine dependence Current Visit: Yes Status: Chronic Qualifiers: Nicotine product type: cigarettes Substance use status: uncomplicated Qualified Code(s): F17.210 - Nicotine dependence, cigarettes, uncomplicated (5) Drug-induced mood disorder Current Visit: No Status: Acute (6) Opioid dependence Current Visit: No Status: Acute - Initial Treatment Plan Initial Treatment Plan: Trazodone 300mg po qhs. Topamax 200mg po qhs
[2017-08-22 10:38] LABS: CHLORIDE 108 mmol/L (98-107); POTASSIUM 3.9 mmol/L (3.5-5.1); SODIUM 143 mmol/L (136-145)
[2017-08-22] MEDS: LIDOCAINE 5% TOPICAL PATCH TP SCH (10:55)
[2017-08-22] MEDS: PRENATAL VITAMINS W/ FOLIC ACID TABLET (FP) PO SCH (10:55)
--- NOTE | 2017-08-22 11:43 | EKG ---
Test Reason : Blood Pressure : / mmHG Vent. Rate : 084 BPM Atrial Rate : 068 BPM P-R Int : 142 ms QRS Dur : 116 ms QT Int : 402 ms P-R-T Axes : 048 -55 048 degrees QTc Int : 475 ms SINUS RHYTHM WITH FREQUENT PREMATURE VENTRICULAR COMPLEXES LEFT ANTERIOR FASCICULAR BLOCK ABNORMAL ECG WHEN COMPARED WITH ECG OF 23-JUL-2016 20:51, PREMATURE VENTRICULAR COMPLEXES ARE NOW PRESENT VENT. RATE HAS INCREASED BY 28 BPM Confirmed by ADRIANNA CHAVEZ MD ([id number]) on 08/22/2017 11:43:15 AM Referred By: Confirmed By:ADRIANNA CHAVEZ MD
[2017-08-22 11:45] LABS: ALBUMIN 3.9 g/dl (3.4-5.0); ALK PHOS 100 U/L (45-117); BLOOD UREA NITROGEN 12 mg/dL (7-18); CALCIUM 8.9 mg/dL (8.5-10.1); CREATININE 0.7 mg/dL (0.7-1.3); GLUCOSE,RANDOM 121 mg/dL (74-106); SGOT/AST 27 U/L (15-37); SGPT/ALT 30 U/L (12-78); TOT PROT 7.1 g/dl (6.4-8.2)
--- NOTE | 2017-08-22 11:59 | PN ---
S CIWA - CIWA Score Nausea/Vomitin Muscle Tremors: 3 Anxiety: 3 Agitation: 2 Paroxysmal Sweats: 1-Minimal Palms Moist Orientation: 0-Oriented Tacttile Disturbances: 1-Very Mild Itch/Numbness Auditory Disturbances: 1-Very Mild Visual Disturbances: 0-None Headache: 2-Mild CIWA-Ar Total Score: 16 S Progress Note (SOAP) Subjective: alert,irritable,anxious,interrupted sleep,tremor,pain in the body and right hip Objective: 08/22/17 11:56 Vital Signs Temperature 98.0 F 08/22/17 09:20 Pulse Rate 67 08/22/17 09:20 Respiratory Rate 18 08/22/17 09:20 Blood Pressure 149/71 08/22/17 09:20 O2 Sat by Pulse Oximetry (%) ekg nsr with vpc qt 402/475 no chest pain,no sob,no dizziness Laboratory Last Values WBC 5.7 K/mm3 (4.0-10.0) D 08/22/17 08:00 RBC 5.15 M/mm3 (4.00-5.60) 08/22/17 08:00 Hgb 15.5 GM/dL (11.7-16.9) 08/22/17 08:00 Hct 45.4 % (35.4-49) 08/22/17 08:00 MCV 88.1 fl (80-96) 08/22/17 08:00 MCH 30.1 pg (25.7-33.7) 08/22/17 08:00 MCHC 34.1 g/dl (32.0-35.9) 08/22/17 08:00 RDW 14.6 % (11.9-15.9) 08/22/17 08:00 Plt Count 164 K/MM3 (134-434) 08/22/17 08:00 MPV 7.3 fl (7.5-11.1) L D 08/22/17 08:00 Sodium 143 mmol/L (136-145) 08/22/17 08:00 Potassium 3.9 mmol/L (3.5-5.1) 08/22/17 08:00 Chloride 108 mmol/L (98-107) H 08/22/17 08:00 BUN 12 mg/dL (7-18) D 08/22/17 08:00 Creatinine 0.7 mg/dL (0.7-1.3) 08/22/17 08:00 Creat Clearance w eGFR > 60 (>60) 08/22/17 08:00 Random Glucose 121 mg/dL (74-106) H D 08/22/17 08:00 Calcium 8.9 mg/dL (8.5-10.1) 08/22/17 08:00 Total Bilirubin 1.0 mg/dL (0.2-1.0) D 08/22/17 08:00 AST 27 U/L (15-37) 08/22/17 08:00 ALT 30 U/L (12-78) 08/22/17 08:00 Alkaline Phosphatase 100 U/L (45-117) D 08/22/17 08:00 Total Protein 7.1 g/dl (6.4-8.2) 08/22/17 08:00 Albumin 3.9 g/dl (3.4-5.0) 08/22/17 08:00 Urine Color Yellow 08/21/17 22:00 Urine Appearance Slcloudy 08/21/17 22:00 Urine pH 5.0 (5.0-8.0) 08/21/17 22:00 Ur Specific [place] 1.015 (1.001-1.035) 08/21/17 22:00 Urine Protein Negative (NEGATIVE) 08/21/17 22:00 Urine Glucose (UA) Negative (NEGATIVE) 08/21/17 22:00 Urine Ketones Negative (NEGATIVE) 08/21/17 22:00 Urine Blood Negative (NEGATIVE) 08/21/17 22:00 Urine Nitrite Negative (NEGATIVE) 08/21/17 22:00 Urine Bilirubin Negative (<2.0 mg/dL) 08/21/17 22:00 Urine Urobilinogen Negative mg/dL (0.2-1.0) 08/21/17 22:00 Ur Leukocyte Esterase 1+ (NEGATIVE) H 08/21/17 22:00 Urine WBC (Auto) 5 /hpf (3-5) 08/21/17 22:00 Urine RBC (Auto) <1 /hpf (0-3) 08/21/17 22:00 Ur Epithelial Cells Rare /HPF (FEW) 08/21/17 22:00 Urine Bacteria Rare /hpf (NONE SEEN) 08/21/17 22:00 Hyaline Casts 8 /lpf 08/21/17 22:00 Urine Mucus Rare 08/21/17 22:00 Assessment: 08/22/17 11:58 withdrawal symptom Plan: continue detox,bgm 121,fasting glucose in am
[2017-08-22 12:18] LABS: ANION GAP 9 (8-16); CO2 26 mmol/L (21-32)
[2017-08-22] MEDS ORDERED: PATIENT'S OWN MEDICATION (NON-FORMULARY) (Trazodone Hcl [Trazodone Hcl] 300 MG) PO SCH (22:00)
[2017-08-22] MEDS ORDERED: TOPIRAMATE 200 MG TABLET (FP) PO SCH (22:00)
[2017-08-22] MEDS: LIDOCAINE PATCH REMOVAL MC SCH (22:27)
[2017-08-22] MEDS: TOPIRAMATE 100 MG TABLET PO SCH (22:27)
[2017-08-22] MEDS: traZODone HCL 100 MG TABLET (FP) PO SCH (22:27)
[2017-08-22] MEDS: THIAMINE HCL 100 MG TABLET (FP) PO SCH (22:28)
[2017-08-22] MEDS: MELATONIN 5 MG TABLETS PO PRN (22:30)
[2017-08-23] MEDS: chlordiazePOXIDE HCL 25 MG CAPSULE PO SCH ×3 (05:41→18:16)
[2017-08-23] MEDS: PRENATAL VITAMINS W/ FOLIC ACID TABLET (FP) PO SCH (10:21)
[2017-08-23] MEDS: LIDOCAINE 5% TOPICAL PATCH TP SCH (10:22)
--- NOTE | 2017-08-23 13:18 | PN ---
S CIWA - CIWA Score Nausea/Vomitin Muscle Tremors: 3 Anxiety: 3 Agitation: 3 Paroxysmal Sweats: 1-Minimal Palms Moist Orientation: 0-Oriented Tacttile Disturbances: 1-Very Mild Itch/Numbness Auditory Disturbances: 1-Very Mild Visual Disturbances: 0-None Headache: 2-Mild CIWA-Ar Total Score: 17 BHS Progress Note (SOAP) Subjective: alert,irritable,anxious,interrupted sleep,tremor Objective: 08/23/17 13:16 Vital Signs Temperature 98.1 F 08/23/17 11:39 Pulse Rate 105 H 08/23/17 11:39 Respiratory Rate 18 08/23/17 11:39 Blood Pressure 133/82 08/23/17 11:39 O2 Sat by Pulse Oximetry (%) Laboratory Last Values WBC 5.7 K/mm3 (4.0-10.0) D 08/22/17 08:00 RBC 5.15 M/mm3 (4.00-5.60) 08/22/17 08:00 Hgb 15.5 GM/dL (11.7-16.9) 08/22/17 08:00 Hct 45.4 % (35.4-49) 08/22/17 08:00 MCV 88.1 fl (80-96) 08/22/17 08:00 MCH 30.1 pg (25.7-33.7) 08/22/17 08:00 MCHC 34.1 g/dl (32.0-35.9) 08/22/17 08:00 RDW 14.6 % (11.9-15.9) 08/22/17 08:00 Plt Count 164 K/MM3 (134-434) 08/22/17 08:00 MPV 7.3 fl (7.5-11.1) L D 08/22/17 08:00 Sodium 143 mmol/L (136-145) 08/22/17 08:00 Potassium 3.9 mmol/L (3.5-5.1) 08/22/17 08:00 Chloride 108 mmol/L (98-107) H 08/22/17 08:00 Carbon Dioxide 26 mmol/L (21-32) 08/22/17 08:00 Anion Gap 9 (8-16) 08/22/17 08:00 BUN 12 mg/dL (7-18) D 08/22/17 08:00 Creatinine 0.7 mg/dL (0.7-1.3) 08/22/17 08:00 Creat Clearance w eGFR > 60 (>60) 08/22/17 08:00 Random Glucose 121 mg/dL (74-106) H D 08/22/17 08:00 Calcium 8.9 mg/dL (8.5-10.1) 08/22/17 08:00 Total Bilirubin 1.0 mg/dL (0.2-1.0) D 08/22/17 08:00 AST 27 U/L (15-37) 08/22/17 08:00 ALT 30 U/L (12-78) 08/22/17 08:00 Alkaline Phosphatase 100 U/L (45-117) D 08/22/17 08:00 Total Protein 7.1 g/dl (6.4-8.2) 08/22/17 08:00 Albumin 3.9 g/dl (3.4-5.0) 08/22/17 08:00 Urine Color Yellow 08/21/17 22:00 Urine Appearance Slcloudy 08/21/17 22:00 Urine pH 5.0 (5.0-8.0) 08/21/17 22:00 Ur Specific [place] 1.015 (1.001-1.035) 08/21/17 22:00 Urine Protein Negative (NEGATIVE) 08/21/17 22:00 Urine Glucose (UA) Negative (NEGATIVE) 08/21/17 22:00 Urine Ketones Negative (NEGATIVE) 08/21/17 22:00 Urine Blood Negative (NEGATIVE) 08/21/17 22:00 Urine Nitrite Negative (NEGATIVE) 08/21/17 22:00 Urine Bilirubin Negative (<2.0 mg/dL) 08/21/17 22:00 Urine Urobilinogen Negative mg/dL (0.2-1.0) 08/21/17 22:00 Ur Leukocyte Esterase 1+ (NEGATIVE) H 08/21/17 22:00 Urine WBC (Auto) 5 /hpf (3-5) 08/21/17 22:00 Urine RBC (Auto) <1 /hpf (0-3) 08/21/17 22:00 Ur Epithelial Cells Rare /HPF (FEW) 08/21/17 22:00 Urine Bacteria Rare /hpf (NONE SEEN) 08/21/17 22:00 Hyaline Casts 8 /lpf 08/21/17 22:00 Urine Mucus Rare 08/21/17 22:00 RPR Titer Nonreactive (NONREACTIVE) 08/22/17 08:00 Assessment: 08/23/17 13:17 withdrawal symptom Plan: continue detox,bgm monitoring
[2017-08-23] MEDS: MAG HYDROX/AL HYDROX/SIMETH 30 ML UNIT-DOSE CUP PO PRN (18:14)
[2017-08-23] MEDS: THIAMINE HCL 100 MG TABLET (FP) PO SCH (22:15)
[2017-08-23] MEDS: chlordiazePOXIDE 5 MG CAPSULE PO SCH (22:15)
[2017-08-23] MEDS: traZODone HCL 100 MG TABLET (FP) PO SCH (22:15)
[2017-08-23] MEDS: MELATONIN 5 MG TABLETS PO PRN (22:15)
[2017-08-23] MEDS: TOPIRAMATE 100 MG TABLET PO SCH (22:15)
[2017-08-23] MEDS: LIDOCAINE PATCH REMOVAL MC SCH (22:16)
[2017-08-24] MEDS: chlordiazePOXIDE 5 MG CAPSULE PO SCH ×3 (05:45→17:27)
[2017-08-24] MEDS: PRENATAL VITAMINS W/ FOLIC ACID TABLET (FP) PO SCH (10:34)
[2017-08-24] MEDS: LIDOCAINE 5% TOPICAL PATCH TP SCH (10:35)
--- NOTE | 2017-08-24 13:16 | PN ---
BHS Progress Note (SOAP) Subjective: alert,anxious,interrupted sleep Objective: 08/24/17 13:15 Vital Signs Temperature 97.7 F 08/24/17 10:42 Pulse Rate 91 H 08/24/17 10:42 Respiratory Rate 16 08/24/17 10:42 Blood Pressure 122/70 08/24/17 10:42 O2 Sat by Pulse Oximetry (%) Assessment: 08/24/17 13:15 withdrawal symptom Plan: continue detox,discharge in am
[2017-08-24] MEDS: MAG HYDROX/AL HYDROX/SIMETH 30 ML UNIT-DOSE CUP PO PRN (14:54)
[2017-08-24] MEDS: THIAMINE HCL 100 MG TABLET (FP) PO SCH (23:03)
[2017-08-24] MEDS: traZODone HCL 100 MG TABLET (FP) PO SCH (23:03)
[2017-08-24] MEDS: TOPIRAMATE 100 MG TABLET PO SCH (23:03)
[2017-08-24] MEDS: chlordiazePOXIDE HCL 10 MG CAPSULE PO SCH (23:04)
[2017-08-24] MEDS: LIDOCAINE PATCH REMOVAL MC SCH (23:06)
[2017-08-25] MEDS: MELATONIN 5 MG TABLETS PO PRN (01:01)
[2017-08-25] MEDS: MAG HYDROX/AL HYDROX/SIMETH 30 ML UNIT-DOSE CUP PO PRN (01:02)
[2017-08-25] MEDS: chlordiazePOXIDE HCL 10 MG CAPSULE PO SCH (04:38)
--- NOTE | 2017-08-25 09:12 | DS ---
[facility] Detox Discharge Summary Admission Date: 08/21/17 Discharge Date: 08/25/17 - History Present History: Alcohol Dependence Additional Comments: 62years old male admitted on 08/21/17 for alcohol withdrawal sx completed alcohol detox regimen tolerated well denies alcohol withdrawal sx alert oriented x 3 no acute distress ambulate with cane due to right hip replacement aftercare with primary care provider for medical mental and addiction issues - Physical Exam Results Vital Signs: Vital Signs Temperature 96.8 F L 08/25/17 07:18 Pulse Rate 94 H 08/25/17 07:18 Respiratory Rate 20 08/25/17 07:18 Blood Pressure 130/90 08/25/17 07:18 O2 Sat by Pulse Oximetry (%) Pertinent Admission Physical Exam Findings: alcohol withdrawal sx Vital Signs Temperature 96.8 F L 08/25/17 07:18 Pulse Rate 94 H 08/25/17 07:18 Respiratory Rate 20 08/25/17 07:18 Blood Pressure 130/90 08/25/17 07:18 O2 Sat by Pulse Oximetry (%) Laboratory Last Values WBC 5.7 K/mm3 (4.0-10.0) D 08/22/17 08:00 RBC 5.15 M/mm3 (4.00-5.60) 08/22/17 08:00 Hgb 15.5 GM/dL (11.7-16.9) 08/22/17 08:00 Hct 45.4 % (35.4-49) 08/22/17 08:00 MCV 88.1 fl (80-96) 08/22/17 08:00 MCH 30.1 pg (25.7-33.7) 08/22/17 08:00 MCHC 34.1 g/dl (32.0-35.9) 08/22/17 08:00 RDW 14.6 % (11.9-15.9) 08/22/17 08:00 Plt Count 164 K/MM3 (134-434) 08/22/17 08:00 MPV 7.3 fl (7.5-11.1) L D 08/22/17 08:00 Sodium 143 mmol/L (136-145) 08/22/17 08:00 Potassium 3.9 mmol/L (3.5-5.1) 08/22/17 08:00 Chloride 108 mmol/L (98-107) H 08/22/17 08:00 Carbon Dioxide 26 mmol/L (21-32) 08/22/17 08:00 Anion Gap 9 (8-16) 08/22/17 08:00 BUN 12 mg/dL (7-18) D 08/22/17 08:00 Creatinine 0.7 mg/dL (0.7-1.3) 08/22/17 08:00 Creat Clearance w eGFR > 60 (>60) 08/22/17 08:00 POC Glucometer 108 UNITS (80-120) 08/25/17 05:45 Random Glucose 121 mg/dL (74-106) H D 08/22/17 08:00 Calcium 8.9 mg/dL (8.5-10.1) 08/22/17 08:00 Total Bilirubin 1.0 mg/dL (0.2-1.0) D 08/22/17 08:00 AST 27 U/L (15-37) 08/22/17 08:00 ALT 30 U/L (12-78) 08/22/17 08:00 Alkaline Phosphatase 100 U/L (45-117) D 08/22/17 08:00 Total Protein 7.1 g/dl (6.4-8.2) 08/22/17 08:00 Albumin 3.9 g/dl (3.4-5.0) 08/22/17 08:00 Urine Color Yellow 08/21/17 22:00 Urine Appearance Slcloudy 08/21/17 22:00 Urine pH 5.0 (5.0-8.0) 08/21/17 22:00 Ur Specific [place] 1.015 (1.001-1.035) 08/21/17 22:00 Urine Protein Negative (NEGATIVE) 08/21/17 22:00 Urine Glucose (UA) Negative (NEGATIVE) 08/21/17 22:00 Urine Ketones Negative (NEGATIVE) 08/21/17 22:00 Urine Blood Negative (NEGATIVE) 08/21/17 22:00 Urine Nitrite Negative (NEGATIVE) 08/21/17 22:00 Urine Bilirubin Negative (<2.0 mg/dL) 08/21/17 22:00 Urine Urobilinogen Negative mg/dL (0.2-1.0) 08/21/17 22:00 Ur Leukocyte Esterase 1+ (NEGATIVE) H 08/21/17 22:00 Urine WBC (Auto) 5 /hpf (3-5) 08/21/17 22:00 Urine RBC (Auto) <1 /hpf (0-3) 08/21/17 22:00 Ur Epithelial Cells Rare /HPF (FEW) 08/21/17 22:00 Urine Bacteria Rare /hpf (NONE SEEN) 08/21/17 22:00 Hyaline Casts 8 /lpf 08/21/17 22:00 Urine Mucus Rare 08/21/17 22:00 RPR Titer Nonreactive (NONREACTIVE) 08/22/17 08:00 lab noted - Treatment Hospital Course: Detox Protocol Followed, Detoxed Safely, Responded well, Discharged Condition Good, Rehab Referral Accepted Patient has Accepted a Rehab Referral to: primary care provider in the community - Medication Discharge Medications: Ambulatory Orders Oxycodone HCl/Acetaminophen [Oxycodone-Acetaminophen 10-325] 1 each PO TID 08/21 Pregabalin [Lyrica -] 100 mg PO TID 08/21/17 Topiramate [Topamax -] 100 mg PO HS 08/21/17 Trazodone HCl 300 mg PO HS 08/21/17 Topiramate [Topamax -] 200 mg PO HS #30 tablet 08/22/17 traZODone HCL [Desyrel -] 300 mg PO HS #30 tablet 08/22/17 Atenolol [Tenormin -] 25 mg PO DAILY #30 tablet 08/25/17 Diltiazem HCl [Diltiazem 24Hr ER] 180 mg PO DAILY #30 cap.er.24h 08/25/17 Spironolactone [Aldactone -] 25 mg PO DAILY #30 tablet 08/25/17 - Diagnosis (1) Alcohol dependence with withdrawal, uncomplicated Current Visit: Yes Status: Acute (2) Bipolar II disorder Current Visit: Yes Status: Suspected (3) Neuropathy Current Visit: Yes Status: Chronic (4) Nicotine dependence Current Visit: Yes Status: Acute Qualifiers: Nicotine product type: cigarettes Substance use status: in withdrawal Qualified Code(s): F17.213 - Nicotine dependence, cigarettes, with withdrawal (5) Use of cane as ambulatory aid Current Visit: Yes Status: Chronic - AMA Did Patient Leave Against Medical Advice: No
[2017-08-25] MEDS ORDERED: hydrOXYzine PAMOATE 50 MG CAPSULE (FP) PO ONE (09:13)
[2017-08-25] MEDS: PRENATAL VITAMINS W/ FOLIC ACID TABLET (FP) PO SCH (09:28)
[2017-08-25] MEDS: LIDOCAINE 5% TOPICAL PATCH TP SCH (09:29)
[2017-08-25 09:59] VITALS: BP 138/64; PULSE 84; TEMP 98.4
== END 2017-08-25 09:21 | disposition home or self-care (01) | DRG 897 ==
LOC: YASAS 13:29 → Y6N 21:06
PROVIDERS: ADMIT Surgery; ATTEND Surgery
PROC: HZ2ZZZZ Detoxification Services for Substance Abuse Treatment (ICD-10-PCS; principal; 2017-08-21)
DX: F19.230 Other psychoactive substance dependence with withdrawal, uncomplicated (principal); F11.20 Opioid dependence, uncomplicated; F31.81 Bipolar II disorder; F10.230 Alcohol dependence with withdrawal, uncomplicated; F17.213 Nicotine dependence, cigarettes, with withdrawal; F19.24 Other psychoactive substance dependence with psychoactive substance-induced mood disorder; I27.20 Pulmonary hypertension, unspecified; M16.11 Unilateral primary osteoarthritis, right hip; G89.29 Other chronic pain; G47.00 Insomnia, unspecified; G62.9 Polyneuropathy, unspecified; H91.8X2 Other specified hearing loss, left ear; M54.5 Low back pain; R26.2 Difficulty in walking, not elsewhere classified; Z99.89 Dependence on other enabling machines and devices; Z96.641 Presence of right artificial hip joint; Z86.69 Personal history of other diseases of the nervous system and sense organs; Z86.79 Personal history of other diseases of the circulatory system
CPT/HCPCS: 36415; 80053; 81003; 81015; 82962; 85027; 86593; 93005; 93010

== ENCOUNTER 2017-12-22 14:19 | Observation (INO) | payer OTHER ==
--- NOTE | 2017-12-22 14:42 | PDOC ---
Attending Attestation - HPI HPI: 12/22/17 15:07 The patient is a 62-year-old male with past medical history significant for Afib (on beta blockers) Peripheral Neuropathy, HTN, and Alcoholic Hepatitis presents to the emergency department with arm pain and redness for the past 1 week. The patient presents with redness, swelling and pain to the L. arm, that s tight and stabbing in quality. The patient reports the pain is aggravated with contraction of the arm. The patient reports the pain and quality are similar to a prior incident when the patient had a blood clot to the R. arm, treated with blood thinners. Denies numbness, tingling, paraesthesia, loss of sensation, fever, chills, nausea or vomiting. Denies recent admission or IV injection to the site. Allergies: NKA Social history: former smoker, Alcohol use, with multiple admissions for detox, No past or present use of recreational drugs. Surgical history: right hip removal of hardware (04/17/[address] Leonard), FX R HIP SX IN 2011 PCP: Dr. Moe Akbar. - Medical Decision Making 12/22/17 15:07 Documentation prepared by Kendra Ctoton, acting as medical pathology teacher for Swati Walker MD. <Kendra Cotton - Last Filed: 12/22/17 15:07> - Resident Resident Name: Sal Salter - ED Attending Attestation I have performed the following: I have examined & evaluated the patient, The case was reviewed & discussed with the resident, I agree w/resident's findings & plan, Exceptions are as noted - Physicial Exam PE: GENERAL: Awake, alert, and fully oriented, in no acute distress HEAD: No signs of trauma EYES: PERRLA, EOMI, sclera anicteric, conjunctiva clear ENT: Auricles normal inspection, hearing grossly normal, nares patent, oropharynx clear without exudates. Moist mucosa NECK: Normal ROM, supple, no lymphadenopathy, JVD, or masses LUNGS: Breath sounds equal, clear to auscultation bilaterally. No wheezes, and no crackles HEART: Regular rate and rhythm, normal S1 and S2, no murmurs, rubs or gallops ABDOMEN: Soft, nontender, normoactive bowel sounds. No guarding, no rebound. No masses EXTREMITIES: LUE with redness to the inner upper arm, +firm tender area in a venous distribution from the antecubital area to the proximal upper arm. Remainder of extremities with normal range of motion, no edema. No clubbing or cyanosis. No cords, erythema, or tenderness NEUROLOGICAL: Cranial nerves II through XII grossly intact. Normal speech, normal gait SKIN: Warm, Dry, normal turgor, no rashes except as noted above. - Medical Decision Making 12/22/17 15:04 Pt with significant redness to the upper arm surrounding a vein. Patient denies any IV drug abuse, although this would be concerning based on the distribution. Most likely diagnosis is superficial thrombophlebitis. Will obtain sono given history of prior UE DVT, will give abx based on the significant redness. <Swati Walker - Last Filed: 12/22/17 16:28>
--- NOTE | 2017-12-22 14:51 | PDOC ---
History of Present Illness - General Chief Complaint: Redness To Affected Area Stated Complaint: left upper arm red - History of Present Illness Initial Comments: 12/22/17 14:50 62 y/o M w/ PMH A-fib, HTN, neuropathy BL lower extremities, spine fx (L), [place] ( L), Right hip replacement, (R) broken elbows, anxiety, depression, R arm blood clot p/w worsening L arm swelling, rash, and non radiating stabbing pressure pain (worse with contraction) x1wk s/p mechanical fall. pt was in his yard and missed the chair as he was sitting down and fell backwards hyperextending his L arm. [place] pain and swelling soon afterwards which worsened over the week. Says this pain is similar to when he had a blood clot in his R arm from an IV (was tx w/ blood thinner). Denies LOC, [place], trauma to head, fever , chills, cp, sob, hemoptysis, cough, n/v/d, urinary sxs, blood in stools, numbness or tingling in extremities. SH: denies IV drug use. quit smoking 25 yr ago. Chronic hx of etoh abuse and detox visits 12/22/17 15:09 Past History - Past Medical History Allergies/Adverse Reactions: Allergies Allergy/AdvReac Type Severity Reaction Status Date / Time No Known Allergies Allergy Verified 12/22/17 14:20 Home Medications: Ambulatory Orders Topiramate [Topamax -] 200 mg PO HS #30 tablet 08/22/17 traZODone HCL [Desyrel -] 300 mg PO HS #30 tablet 08/22/17 Atenolol [Tenormin -] 25 mg PO DAILY #30 tablet 08/25/17 Diltiazem HCl [Diltiazem 24Hr ER] 180 mg PO DAILY #30 cap.er.24h 08/25/17 Spironolactone [Aldactone -] 25 mg PO DAILY #30 tablet 08/25/17 Oxycodone HCl [Roxicodone] 15 mg PO TID 12/22/17 Pregabalin [Lyrica] 100 mg PO TID 12/22/17 Anemia: No Asthma: No Cancer: No Cardiac Disorders: Yes ( a-fib) CVA: No COPD: No CHF: No Dementia: No Diabetes: No GI Disorders: No Disorders: No HTN: Yes (on med) Hypercholesterolemia: No Kidney Stones: No Liver Disease: No Psychiatric Problems: Yes Seizures: Yes (last 2014) Thyroid Disease: No - Surgical History Abdominal Surgery: No Appendectomy: No Cardiac Surgery: No Cholecystectomy: No Lung Surgery: No Neurologic Surgery: No Orthopedic Surgery: Yes (FX R HIP SX IN 2011 + 2016) - Reproductive History Testicular Surgery: No - Immunization History Immunization Up to Date: Yes - Suicide/Smoking/Psychosocial Hx Smoking Status: No Smoking History: Former smoker Have you smoked in the past 12 months: No Number of Cigarettes Smoked Daily: 0 If you are a former smoker, when did you quit?: 20 YRS AGO Information on smoking cessation initiated: No 'Breaking Loose' booklet given: 03/29/16 Hx Alcohol Use: Yes Drug/Substance Use Hx: No Substance Use Type: Alcohol Hx Substance Use Treatment: Yes Review of Systems - Review of Systems Constitutional: Yes: See HPI HEENTM: Yes: See HPI Respiratory: Yes: See HPI Cardiac (ROS): Yes: See HPI ABD/GI: Yes: See HPI : Yes: See HPI Musculoskeletal: Yes: See HPI Integumentary: Yes: See HPI Neurological: Yes: See HPI Endocrine: Yes: See HPI Hematologic/Lymphatic: Yes: See HPI *Physical Exam - Vital Signs Last Vital Signs Temp Pulse Resp BP Pulse Ox 98.6 F 52 L 20 123/63 100 12/22/17 14:20 12/22/17 14:20 12/22/17 14:20 12/22/17 14:20 12/22/17 14:20 - Physical Exam Comments: 12/22/17 15:05 General: Well-nourished well-developed individual, NAD HEENT: NCAT MMM, no erythema or exudate Neck: Supple, no lymphadenopathy Respiratory: CTAB cardio: RRR S1 S2 no m/r/g Abdomen:+BS Soft, NTND Extremities: radial 2+ b/l. Warm, dry, no cyanosis, clubbing. L arm swelling erythema warm and tender to touch w/ hardening/induration in venous distribution from the antecubital area to the proximal upper arm. no fluctuance Skin: L arm rash. multiple scabs on forearms b/l (pt says he picks at his skin) Neuro: Alert and oriented x3, nonfocal exam, grossly intact Psych: Normal mood and affect 12/22/17 15:12 ED Treatment Course - LABORATORY CBC & Chemistry Diagram: 12/22/17 15:15 12/22/17 15:15 Medical Decision Making - Medical Decision Making 12/22/17 15:10 62 y/o M w/ PMH A-fib, HTN, neuropathy BL lower extremities, spine fx (L), [place] ( L), Right hip replacement, (R) broken elbows, anxiety, depression, R arm blood clot p/w worsening L arm swelling, rash, and non radiating stabbing pressure pain (worse with contraction) x1wk s/p mechanical fall. Ddx: cellulitis, thrombophlebitis, DVT -CBC, CMP, Bcx -LUE Duplex 12/22/17 16:17 labs unremarkable sono neg for DVT likely phlebitis, pt denies IV drug use, but will tx empirically w/ IV vanc to cover gram + pt will require obs admission 12/22/17 16:49 Signed out to SEBASTIÁN Wooten/Dr. Agarwal We will admit to obs for phlebitis *DC/Admit/Observation/Transfer Diagnosis at time of Disposition: Phlebitis - Referrals - Patient Instructions - Post Discharge Activity
[2017-12-22 15:33] LABS: BASO % 1.3 % (0-2.0); EOS % 2.6 % (0-4.5); HEMATOCRIT 40.9 % (35.4-49); HEMOGLOBIN 13.4 GM/dl (11.7-16.9); LYMPH % 19.6 % (8-40); MCH 29.4 pg (25.7-33.7); MCHC 32.8 g/dl (32.0-35.9); MEAN CELL VOLUME 89.6 fl (80-96); MEAN PLT VOLUME 7.2 fl (7.5-11.1); MONO % 10.4 % (3.8-10.2); NEUT % 66.1 % (42.8-82.8); PLATELET COUNT 247 K/MM3 (134-434); RBC 4.56 M/mm3 (4.00-5.60); RDW 13.6 % (11.9-15.9); WHITE BLOOD COUNT 8.1 K/mm3 (4.0-10.8)
[2017-12-22 15:44] LABS: ALK PHOS 57 U/L (32-92); ANION GAP 7 MMOL/L (8-16); BILIRUBIN,TOTAL 0.6 mg/dl (0.2-1.0); BLOOD UREA NITROGEN 15 mg/dl (7-18); CALCIUM 8.8 mg/dl (8.4-10.2); CHLORIDE 106 mmol/L (98-107); CO2 25 mmol/L (22-28); CREATININE 0.9 mg/dl (0.6-1.3); GLUCOSE,RANDOM 96 mg/dl (74-106); SGOT/AST 16 U/L (10-42); SGPT/ALT 14 U/L (10-40); SODIUM 138 mmol/L (136-145); TOT PROT 6.8 g/dl (6.4-8.3)
[2017-12-22] MEDS ORDERED: VANCOMYCIN 1,000 MG in DEXTROSE 5%-WATER - 250 ML IVPB ONE (16:13)
[2017-12-22] MEDS ORDERED: VANCOMYCIN 1,000 MG VIAL (RESTRICTED TO ID ONLY) ONE (16:26)
[2017-12-22 17:59] VITALS: BMI 27.5
--- NOTE | 2017-12-22 21:44 | HP ---
CHIEF COMPLAINT: Redness left upper arm PCP: [facility] HISTORY OF PRESENT ILLNESS: This is a 62 year old male with a significant past medical history of afib, HTN , DVT right arm, neuropathy, chronic back pain presented to the ED with redness , pain, swelling to left upper arm surrounding a vein. Pt reports he fell backwards last week, Saturday, and caught himself under his arms. c/o pain to left axilla and left upper arm. ER course was notable for: (1) WBC 8.1 (2) US neg for DVT Recent Travel: pt denies PAST MEDICAL HISTORY: afib, HTN, DVT right arm, B/L LE neuropathy, chronic back pain s/p fracture, [place] , anxiety, depression, seizure (last 2014), R elbow fracture PAST SURGICAL HISTORY: Right hip surgery 2011, [facility] 2016 Social History: Smoking: pt denies Alcohol: prior ETOH abuse, none x 2 months Drugs: pt denies Family History: mother alive and well father age 79, colon CA one brother, one sister no medical problems Allergies No Known Allergies Allergy (Verified 12/22/17 14:20) HOME MEDICATIONS: 3 Medication Instructions Recorded Topiramate [Topamax -] 200 mg PO HS #30 tablet 08/22/17 traZODone HCL [Desyrel -] 300 mg PO HS #30 tablet 08/22/17 Atenolol [Tenormin -] 25 mg PO DAILY #30 tablet 08/25/17 Diltiazem HCl [Diltiazem 24Hr ER] 180 mg PO DAILY #30 cap.er.24h 08/25/17 Spironolactone [Aldactone -] 25 mg PO DAILY #30 tablet 08/25/17 Oxycodone HCl [Roxicodone] 15 mg PO TID 12/22/17 Pregabalin [Lyrica] 100 mg PO TID 12/22/17 REVIEW OF SYSTEMS CONSTITUTIONAL: Absent: fever, chills, diaphoresis, generalized weakness, malaise, loss of appetite, weight change HEENT: Absent: rhinorrhea, nasal congestion, throat pain, throat swelling, difficulty swallowing, mouth swelling, ear pain, eye pain, visual changes CARDIOVASCULAR: Absent: chest pain, syncope, palpitations, irregular heart rate, lightheadedness , peripheral edema RESPIRATORY: Absent: cough, shortness of breath, dyspnea with exertion, orthopnea, wheezing, stridor, hemoptysis GASTROINTESTINAL: Absent: abdominal pain, abdominal distension, nausea, vomiting, diarrhea, constipation, melena, hematochezia GENITOURINARY: Absent: dysuria, frequency, urgency, hesitancy, hematuria, flank pain, genital pain MUSCULOSKELETAL: Absent: myalgia, arthralgia, joint swelling, back pain, neck pain SKIN: Present: Left upper inner arm with redness and swelling Absent: rash, itching, pallor HEMATOLOGIC/IMMUNOLOGIC: Absent: easy bleeding, easy bruising, lymphadenopathy, frequent infections ENDOCRINE: Absent: unexplained weight gain, unexplained weight loss, heat intolerance, cold intolerance NEUROLOGIC: Absent: headache, focal weakness or paresthesias, dizziness, unsteady gait, seizure, mental status changes, bladder or bowel incontinence PSYCHIATRIC: Absent: anxiety, depression, suicidal or homicidal ideation, hallucinations. PHYSICAL EXAMINATION Vital Signs - 24 hr 3 12/22/17 12/22/17 12/22/17 14:20 16:18 17:00 Temperature 98.6 F 97.9 F Pulse Rate 52 L 61 Pulse Rate [ 56 L Right Radial] Respiratory 20 16 16 Rate Blood Pressure 123/63 110/52 L Blood Pressure 119/66 [Right Arm] O2 Sat by Pulse 100 99 Oximetry (%) GENERAL: Awake, alert, and fully oriented, in no acute distress. HEAD: Normal with no signs of trauma. EYES: Pupils equal, round and reactive to light, extraocular movements intact, sclera anicteric, conjunctiva clear. No lid lag. EARS, NOSE, THROAT: Ears normal, nares patent, oropharynx clear without exudates. Moist mucous membranes. NECK: Normal range of motion, supple without lymphadenopathy, JVD, or masses. LUNGS: Breath sounds equal, clear to auscultation bilaterally. No wheezes, and no crackles. No accessory muscle use. HEART: Regular rate and rhythm, normal S1 and S2 without murmur, rub or gallop. ABDOMEN: Soft, nontender, not distended, normoactive bowel sounds, no guarding, no rebound, no masses. No hepatomegaly or splenomegaly. MUSCULOSKELETAL: Normal range of motion at all joints. No bony deformities or tenderness. No CVA tenderness. UPPER EXTREMITIES: 2+ pulses, warm, well-perfused. No cyanosis. No clubbing. No peripheral edema. + palpable cord left upper inner arm, + surrounding erythema ( has receded from pen line drawn in ED), + hot to touch LOWER EXTREMITIES: 2+ pulses, warm, well-perfused. No calf tenderness. No peripheral edema. NEUROLOGICAL: Cranial nerves II-XII intact. Normal speech. Normal gait. PSYCHIATRIC: Cooperative. Good eye contact. Appropriate mood and affect. SKIN: Warm, dry, normal turgor, no rashes or lesions noted, normal capillary refill. Laboratory Results - last 24 hr 3 12/22/17 12/22/17 15:15 15:15 WBC 8.1 RBC 4.56 Hgb 13.4 Hct 40.9 MCV 89.6 MCH 29.4 MCHC 32.8 RDW 13.6 Plt Count 247 MPV 7.2 L Absolute Neuts (auto) 5.4 Neutrophils % 66.1 Lymphocytes % 19.6 D Monocytes % 10.4 H Eosinophils % 2.6 Basophils % 1.3 Sodium 138 Potassium 4.0 Chloride 106 Carbon Dioxide 25 Anion Gap 7 L BUN 15 Creatinine 0.9 Creat Clearance w eGFR > 60 Random Glucose 96 D Calcium 8.8 Total Bilirubin 0.6 AST 16 ALT 14 D Alkaline Phosphatase 57 Total Protein 6.8 Albumin 4.0 ASSESSMENT/PLAN: 62yM with PMH afib, HTN, DVT right arm, B/L LE neuropathy, chronic back pain s/ p fracture, [place], anxiety, depression, seizure (last 2014), R elbow fracture presented to the ED with redness and swelling to left upper arm. Phlebitis - given vancomycin with receding of erythema, will cont same - ID consult - follow blood cultures - warm compresses HTN/afib - cont home meds: atenolol, diltiazem, spironolactone - rate regular, likely in sinus rhythm, pt reports that some doctors have told him that he doesn't have afib Neuropathy - cont home lyrica chronic back pain - cont home oxycodone anxiety/depression - cont home topamax and trazodone DVT PPX - low risk, heparin deferred FEN - tolerating po - BMP in am - Low sodium diet as tolerated Dispo: Pt currently requires further observation. Visit type - Emergency Visit Emergency Visit: Yes ED Registration Date: 12/22/17 Care time: The patient presented to the Emergency Department on the above date and was hospitalized for further evaluation of their emergent condition. - New Patient This patient is new to me today: Yes Date on this admission: 12/22/17 - Critical Care Critical Care patient: No
[2017-12-22] MEDS ORDERED: traZODone HCL 150 MG TABLET PO SCH (22:00)
[2017-12-22] MEDS ORDERED: TOPIRAMATE 100 MG TABLET PO SCH (22:00)
[2017-12-22] MEDS ORDERED: PREGABALIN 100 MG CAPSULE PO SCH (22:00)
[2017-12-22] MEDS ORDERED: traZODone HCL 100 MG TABLET (FP) PO SCH (22:07)
[2017-12-22] MEDS: oxyCODONE HCL 5 MG TABLET PO SCH (22:18)
[2017-12-22] MEDS: PREGABALIN 50 MG CAPSULE PO SCH (23:11)
[2017-12-23] MEDS: PREGABALIN 50 MG CAPSULE PO SCH ×2 (06:29→14:47)
[2017-12-23] MEDS: oxyCODONE HCL 5 MG TABLET PO SCH ×2 (06:29→14:47)
[2017-12-23] MEDS ORDERED: VANCOMYCIN 1,250 MG in DEXTROSE 5%-WATER - 250 ML IVPB ONE (07:30)
[2017-12-23] MEDS ORDERED: REFRIGERATED ANITBIOTICS ONE (07:44)
[2017-12-23 08:23] LABS: BASO % 0.5 % (0-2.0); HEMATOCRIT 38.8 % (35.4-49); LYMPH % 30.7 % (8-40); MCH 30.2 pg (25.7-33.7); MCHC 33.5 g/dl (32.0-35.9); MEAN CELL VOLUME 90.3 fl (80-96); MEAN PLT VOLUME 7.6 fl (7.5-11.1); MONO % 13.2 % (3.8-10.2); NEUT % 51.6 % (42.8-82.8); PLATELET COUNT 206 K/MM3 (134-434); RDW 13.4 % (11.9-15.9); WHITE BLOOD COUNT 6.1 K/mm3 (4.0-10.8)
[2017-12-23 08:57] LABS: ANION GAP 5 MMOL/L (8-16); BLOOD UREA NITROGEN 14 mg/dl (7-18); CALCIUM 8.5 mg/dl (8.4-10.2); CHLORIDE 109 mmol/L (98-107); CO2 23 mmol/L (22-28); CREATININE 0.8 mg/dl (0.6-1.3); GLUCOSE,RANDOM 91 mg/dl (74-106); PHOSPHOROUS 3.5 mg/dl (2.5-4.6); POTASSIUM 3.7 mmol/L (3.5-5.1); SODIUM 137 mmol/L (136-145)
--- NOTE | 2017-12-23 08:57 | PN ---
Physical Exam: SUBJECTIVE: Patient seen and examined OBJECTIVE: Vital Signs Period Temp Pulse Resp BP Sys/Tse Pulse Ox Last 24 Hr 97.7 F-98.6 F 46-61 16-20 100-123/50-66 98-100 GENERAL: The patient is awake, alert, and fully oriented, in no acute distress. HEAD: Normal with no signs of trauma. EYES: PERRL, extraocular movements intact, sclera anicteric, conjunctiva clear. No ptosis. ENT: Ears normal, nares patent, oropharynx clear without exudates, moist mucous membranes. NECK: Trachea midline, full range of motion, supple. LUNGS: Breath sounds equal, clear to auscultation bilaterally, no wheezes, no crackles, no accessory muscle use. HEART: Regular rate and rhythm, S1, S2 without murmur, rub or gallop. ABDOMEN: Soft, nontender, nondistended, normoactive bowel sounds, no guarding, no rebound, no hepatosplenomegaly, no masses. EXTREMITIES: 2+ pulses, warm, well-perfused, no edema. NEUROLOGICAL: Cranial nerves II through XII grossly intact. Normal speech, gait not observed. PSYCH: Normal mood, normal affect. SKIN: Warm, dry, normal turgor, no rashes or lesions noted Laboratory Results - last 24 hr 12/22/17 12/22/17 12/23/17 15:15 15:15 07:09 WBC 8.1 6.1 RBC 4.56 4.30 Hgb 13.4 13.0 Hct 40.9 38.8 MCV 89.6 90.3 MCH 29.4 30.2 MCHC 32.8 33.5 RDW 13.6 13.4 Plt Count 247 206 MPV 7.2 L 7.6 Absolute Neuts (auto) 5.4 3.2 Neutrophils % 66.1 51.6 D Lymphocytes % 19.6 D 30.7 D Monocytes % 10.4 H 13.2 H Eosinophils % 2.6 4.0 Basophils % 1.3 0.5 Sodium 138 Potassium 4.0 Chloride 106 Carbon Dioxide 25 Anion Gap 7 L BUN 15 Creatinine 0.9 Creat Clearance w eGFR > 60 Random Glucose 96 D Calcium 8.8 Total Bilirubin 0.6 AST 16 ALT 14 D Alkaline Phosphatase 57 Total Protein 6.8 Albumin 4.0 Active Medications Generic Name Dose Route Start Last Admin Trade Name Freq PRN Reason Stop Dose Admin Atenolol 25 mg 12/23/17 10:00 Tenormin - PO DAILY ELLYN Diltiazem HCl 180 mg 12/23/17 10:00 Cardizem Cd - PO DAILY ELLYN Vancomycin HCl 1,250 mg/ 250 mls @ 250 mls/2 hr 12/23/17 07:30 12/23/17 08:22 Dextrose IVPB 12/23/17 09:29 250 mls/2 hr ONCE ONE Administration Protocol Oxycodone HCl 15 mg 12/22/17 22:00 12/23/17 06:29 Roxicodone - PO 15 mg TID ELLYN Administration Pregabalin 100 mg 12/22/17 22:30 12/23/17 06:29 Lyrica - PO 100 mg TID ELLYN Administration Spironolactone 25 mg 12/23/17 10:00 Aldactone - PO DAILY ELLYN Topiramate 200 mg 12/22/17 22:00 12/22/17 23:23 Topamax - PO 200 mg HS ELLYN Administration Trazodone HCl 300 mg 12/22/17 22:07 12/22/17 23:25 Desyrel - PO 300 mg HS ELLYN Administration ASSESSMENT/PLAN:
--- NOTE | 2017-12-23 09:00 | PN ---
Progress Note (short form) - Note Progress Note: ID Consult dictated Superficial thrombophlebitis L UE ? cellulitis Await c/s Vancomycin If stable substitute keflex 500mg po q6h x 7d Warm compresses
[2017-12-23] MEDS ORDERED: SPIRONOLACTONE 25 MG TABLET (FP) PO SCH (10:00)
[2017-12-23] MEDS ORDERED: ATENOLOL 25 MG TABLET (FP) PO SCH (10:00)
--- NOTE | 2017-12-23 12:51 | DS ---
Physical Exam: SUBJECTIVE: Patient seen and examined, reports feeling well, denies any tactile fever, OBJECTIVE: This is a 62 year old male with a significant past medical history of afib, HTN, DVT right arm, neuropathy, chronic back pain presented to the ED with redness, pain, swelling to left upper arm surrounding a vein. Pt reports he fell backwards last week, Saturday, and caught himself under his arms. c/o pain to left axilla and left upper arm. ER course was notable for: (1) WBC 8.1 (2) US neg for DVT Vital Signs Period Temp Pulse Resp BP Sys/Tse Pulse Ox Last 24 Hr 97.7 F-98.6 F 46-61 16-20 100-123/47-66 96-100 PHYSICAL EXAM GENERAL: The patient is awake, alert, and fully oriented, in no acute distress. HEAD: Normal with no signs of trauma. EYES: PERRL, extraocular movements intact, sclera anicteric, conjunctiva clear. ENT: Ears normal, nares patent, oropharynx clear without exudates, moist mucous membranes. NECK: Trachea midline, full range of motion, supple. LUNGS: Breath sounds equal, clear to auscultation bilaterally, no wheezes, no crackles, no accessory muscle use. HEART: Regular rate and rhythm, S1, S2 without murmur, rub or gallop. ABDOMEN: Soft, nontender, nondistended, normoactive bowel sounds, no guarding, no rebound, no hepatosplenomegaly, no masses. EXTREMITIES: 2+ pulses, warm, well-perfused, no edema. + palpable cord left proximal medial extremity, + surrounding erythema (has receded from pen line drawn in ED), warm to touch NEUROLOGICAL: Cranial nerves II through XII grossly intact. Normal speech, gait not observed. PSYCH: Normal mood, normal affect. SKIN: Warm, dry, normal turgor, no rashes or lesions noted. LABS Laboratory Results - last 24 hr 12/22/17 12/22/17 12/23/17 15:15 15:15 07:09 WBC 8.1 6.1 RBC 4.56 4.30 Hgb 13.4 13.0 Hct 40.9 38.8 MCV 89.6 90.3 MCH 29.4 30.2 MCHC 32.8 33.5 RDW 13.6 13.4 Plt Count 247 206 MPV 7.2 L 7.6 Absolute Neuts (auto) 5.4 3.2 Neutrophils % 66.1 51.6 D Lymphocytes % 19.6 D 30.7 D Monocytes % 10.4 H 13.2 H Eosinophils % 2.6 4.0 Basophils % 1.3 0.5 Sodium 138 Potassium 4.0 Chloride 106 Carbon Dioxide 25 Anion Gap 7 L BUN 15 Creatinine 0.9 Creat Clearance w eGFR > 60 Random Glucose 96 D Calcium 8.8 Phosphorus Magnesium Total Bilirubin 0.6 AST 16 ALT 14 D Alkaline Phosphatase 57 Total Protein 6.8 Albumin 4.0 12/23/17 07:09 WBC RBC Hgb Hct MCV MCH MCHC RDW Plt Count MPV Absolute Neuts (auto) Neutrophils % Lymphocytes % Monocytes % Eosinophils % Basophils % Sodium 137 Potassium 3.7 Chloride 109 H Carbon Dioxide 23 Anion Gap 5 L BUN 14 Creatinine 0.8 Creat Clearance w eGFR > 60 Random Glucose 91 Calcium 8.5 Phosphorus 3.5 D Magnesium 2.0 Total Bilirubin AST ALT Alkaline Phosphatase Total Protein Albumin IMAGING Duplex left upper arm: no dvt in left upper extremity HOSPITAL COURSE: Phlebitis - vancomycin with receding of erythema - ID, Dr Lane consulted and followed - warm compresses to right upper extremity HTN/afib - continued home meds: atenolol, diltiazem, spironolactone Neuropathy - continued home lyrica chronic back pain - continued home oxycodone anxiety/depression - continued home topamax and trazodone Date of Admission:12/22/17 Date of Discharge: 12/23/17 Minutes to complete discharge: 45 Discharge Summary Reason For Visit: CELLULITIS OF ARM,TRHOBOPHLETBITIS Current Active Problems Phlebitis (Acute) - Instructions - Home Medications Comprehensive Discharge Medication List: Ambulatory Orders Topiramate [Topamax -] 200 mg PO HS #30 tablet 08/22/17 traZODone HCL [Desyrel -] 300 mg PO HS #30 tablet 08/22/17 Atenolol [Tenormin -] 25 mg PO DAILY #30 tablet 08/25/17 Diltiazem HCl [Diltiazem 24Hr ER] 180 mg PO DAILY #30 cap.er.24h 08/25/17 Spironolactone [Aldactone -] 25 mg PO DAILY #30 tablet 08/25/17 Oxycodone HCl [Roxicodone] 15 mg PO TID 12/22/17 Pregabalin [Lyrica] 100 mg PO TID 12/22/17
[2017-12-23 14:27] VITALS: BP 124/52; PULSE 55; TEMP 98
--- NOTE | 2017-12-23 15:02 | CONS ---
DATE OF CONSULTATION: DATE OF DICTATION: 12/23/2017 The patient is a 62-year-old male evaluated for cellulitis of the left upper extremity. HISTORY OF PRESENT ILLNESS: The patient states that 1 week ago, on December 16, he was in a squatting position and fell backward. He sustained a strain injury to his left upper extremity. He reports experiencing pain, which he describes as a pulled muscle. Over the next several days, he developed worsening pain and swelling of the left upper extremity. It began to become red. He presented for evaluation, where he was admitted for suspected cellulitis of the left upper extremity. He was noted to have a superficial thrombophlebitis. A Doppler exam was performed of the left upper extremity, was negative for DVT. Cultures were obtained and he was empirically treated with vancomycin. At the present time, he reports less pain in the left upper extremity. He denies any trauma other than what was previously mentioned. Denies any insect or animal bites or scratches. He has had no associated fever or chills. Denies history of injection drug use. Patient denies any recent phlebotomy or IVs in the left upper extremity. Past medical history positive for chronic alcohol abuse, atrial fibrillation, hypertension, peripheral neuropathy, history of alcoholic hepatitis, history of anxiety and depression, history of right upper extremity DVT in 2014, history of hip fracture and removal of hardware. No known allergies. SOCIAL HISTORY: Former smoker. SYSTEMS REVIEW: Neurologic: No loss of consciousness, seizure activity, or focal weakness. Cardiac: Negative chest pain or palpitations. Respiratory: Negative cough or sputum production. Gastrointestinal: Negative vomiting or diarrhea. Genitourinary: Negative for urinary tract infection. LABORATORY DATA: White count 8.1, hematocrit 40.9, platelet count 249. Creatinine 0.9. Liver enzymes normal. Doppler exam: Left upper extremity negative for DVT. Blood cultures pending. Liver enzymes normal. PHYSICAL EXAMINATION: General: He is awake and alert. He is not acutely toxic appearing. He is in moderate distress secondary to left upper extremity discomfort. Vital Signs: Temperature 97.7. Blood pressure 100/50. Pulse 46, regular. Respirations 18 per minute. Eyes: Sclerae anicteric. Heart Sounds: S1, S2. No murmur. Lungs: Clear. Abdomen: Soft. No tenderness elicited. No mass, rebound or rigidity. Extremities: Examination of the left upper extremity, there was a palpable cord present in the left antecubital fossa extending proximally. It is swollen, erythematous, and tender to touch. There is surrounding erythema. No crepitus or fluctuance. Positive left axillary adenopathy. No puncture wounds noted. IMPRESSION: Superficial thrombophlebitis, left upper extremity, possible cellulitis. Await cultures. Continue empiric vancomycin. If stable, substitute Keflex 500 mg orally every 6 hours for 7 days. Warm compresses, analgesics. Thank you for the kind referral. ALEJANDRO CALIXTO M.D. [id number]
[2017-12-24] MEDS ORDERED: VANCOMYCIN 1,250 MG in DEXTROSE 5%-WATER - 250 ML IVPB SCH (09:00)
== END 2017-12-23 14:50 | disposition home or self-care (01) ==
LOC: FER 14:19 → FM/S 16:18
PROVIDERS: ADMIT Internal Medicine; ATTEND Nurse Practitioner Family
DX: I80.8 Phlebitis and thrombophlebitis of other sites (principal); I10 Essential (primary) hypertension; I48.91 Unspecified atrial fibrillation; G62.9 Polyneuropathy, unspecified; K70.10 Alcoholic hepatitis without ascites; F10.10 Alcohol abuse, uncomplicated; F41.9 Anxiety disorder, unspecified; F32.9 Major depressive disorder, single episode, unspecified; M54.5 Low back pain; G89.29 Other chronic pain; Z87.891 Personal history of nicotine dependence; Z96.641 Presence of right artificial hip joint; Z86.69 Personal history of other diseases of the nervous system and sense organs
CPT/HCPCS: 36415; 80048; 80053; 83735; 84100; 85025; 87040; 93971; 96365; 96366; 96367; 99282-25; G0378

== ENCOUNTER 2018-09-24 08:15 | Day surgery (SDC) | payer OTHER ==
[2018-09-22 11:00] VITALS: BMI 28.1
[2018-09-24 08:42] VITALS: TEMP 98.4
[2018-09-24] MEDS ORDERED: LIDOCAINE HCL/PF 2% SDV 5ML VIAL ONE (08:57)
[2018-09-24] MEDS ORDERED: PROPOFOL 20 ML ONE ×5 (08:57→09:57)
[2018-09-24] MEDS ORDERED: MIDAZOLAM HCL 2 MG/2 ML SINGLE DOSE VIAL ONE ×2 (09:24)
[2018-09-24 11:15] VITALS: BP 122/75; PULSE 65
--- NOTE | 2018-09-25 13:29 | PATH ---
Surgical Pathology Report Patient Name: JOSH ODOM [facility]. Rec. #: [id number] /Age/Gender: 1955 (Age: 63) / M Account: [id number] Location: [facility] Taken: 09/24/2018 Received: 09/24/2018 Reported: 09/25/2018 Physicians: Brigido Mayes M.D. Specimen(s) Received A: POLYP SIGMOID COLON AT 40CM. B: POLYP SIGMOID COLON AT 30 CM. Clinical History Family history of colon cancer Postoperative diagnosis: Polyps, diverticulosis Final Diagnosis A. SIGMOID COLON AT 40CM, POLYP, POLYPECTOMY: TUBULAR ADENOMA. B. SIGMOID COLON AT 30 CM, POLYP, POLYPECTOMY: SESSILE SERRATED POLYP. Electronically Signed Roopa Matt M.D. Gross Description A. Received in formalin labeled "polyp sigmoid colon at 40 cm," are 5 pollock, polypoid portions of soft tissue ranging from 0.5-1.5 cm in greatest dimension. The 2 larger portions of polyp are sectioned and the specimen is entirely submitted in 3 cassettes as follows: 1-three smaller portions of polyp; 2-one bisected portion of polyp; 3-one trisected portion of polyp. B. Received in formalin labeled "polyp sigmoid colon at 30 cm," are 2 pollock, polypoid portions of soft tissue measuring 0.6 and 1.3 cm in greatest dimension. The larger portion of polyp is bisected and the specimen is entirely submitted in 2 cassettes as follows: 1-one portion of polyp; 2-larger bisected portion of polyp. /09/24/2018 saudi/09/24/2018
== END 2018-09-24 11:15 | disposition home or self-care (01) ==
LOC: FASU-ENDO 08:15
PROVIDERS: ATTEND Internal Medicine Gastroenterology
PROC: 0DBN8ZX Excision of Sigmoid Colon, Via Natural or Artificial Opening Endoscopic, Diagnostic (ICD-10-PCS; 2018-09-24)
PROC: 0DBN8ZX Excision of Sigmoid Colon, Via Natural or Artificial Opening Endoscopic, Diagnostic (ICD-10-PCS; principal; 2018-09-24 09:23)
DX: Z80.0 Family history of malignant neoplasm of digestive organs (principal); D12.5 Benign neoplasm of sigmoid colon; K57.30 Diverticulosis of large intestine without perforation or abscess without bleeding
CPT/HCPCS: 88305-TC

== ENCOUNTER 2019-05-12 11:07 | Emergency (ER) | payer OTHER ==
[2019-05-12] MEDS ORDERED: ALBUTEROL SO4 2.5/IPRATROPIUM 0.5 INH SOL 3 ML VIAL.NEB. NEB ONE ×4 (11:17→13:08)
[2019-05-12 11:24] VITALS: BP 133/79; PULSE 62; TEMP 98.4; BMI 29.6
[2019-05-12] MEDS ORDERED: predniSONE 20 MG TABLET (UD) ONE (12:27)
[2019-05-12] MEDS: predniSONE 20 MG TABLET (UD) PO ONE ×2 (12:34→14:08)
[2019-05-12 12:41] LABS: BASO % 0.3 % (0-2.0); EOS % 1.9 % (0-4.5); HEMATOCRIT 40.1 % (35.4-49); HEMOGLOBIN 13.3 GM/dl (11.7-16.9); LYMPH % 22.6 % (8-40); MCH 28.7 pg (25.7-33.7); MCHC 33.2 g/dl (32.0-35.9); MEAN CELL VOLUME 86.5 fl (80-96); MEAN PLT VOLUME 7.2 fl (7.5-11.1); MONO % 3.3 % (3.8-10.2); NEUT % 71.9 % (42.8-82.8); PLATELET COUNT 308 K/MM3 (134-434); RBC 4.64 M/mm3 (4.00-5.60); RDW 13.8 % (11.9-15.9); WHITE BLOOD COUNT 7.9 K/mm3 (4.0-10.8)
[2019-05-12 12:49] LABS: ALBUMIN 3.9 g/dl (3.4-5.0); BILIRUBIN,TOTAL 0.5 mg/dl (0.2-1); CALCIUM 8.5 mg/dl (8.5-10); CREATININE 0.7 mg/dl (0.55-1.3); POTASSIUM 4.1 mmol/L (3.5-5.1); TOT PROT 6.8 g/dl (6.4-8.2)
--- NOTE | 2019-05-12 13:01 | PDOC ---
History of Present Illness - General Chief Complaint: Shortness of Breath Stated Complaint: SOB Time Seen by Provider: 05/12/19 11:12 - History of Present Illness Initial Comments: 05/12/19 13:51 63 years old past medical history significant for hypertension former alcohol abuse presents to the emergency department with several week history of cough and some shortness of breath with exertion some chills at home but denies fevers no chest pain no lightheadedness no nausea no vomiting symptoms are mild to moderate persistent constant worse over the last few days. Past History - Past Medical History Allergies/Adverse Reactions: Allergies Allergy/AdvReac Type Severity Reaction Status Date / Time No Known Allergies Allergy Verified 05/12/19 11:08 Home Medications: Ambulatory Orders Topiramate [Topamax -] 200 mg PO HS #30 tablet 08/22/17 Atenolol [Tenormin -] 25 mg PO DAILY #30 tablet 08/25/17 Diltiazem HCl [Diltiazem 24Hr ER (Cd)] 180 mg PO DAILY #30 cap.er.24h 08/25/17 Spironolactone [Aldactone -] 25 mg PO DAILY #30 tablet 08/25/17 Pregabalin [Lyrica] 100 mg PO TID 12/22/17 Multivit-Mins/Iron/Folic/Lycop [Centrum Men's Tablet] 1 each PO DAILY 09/22/18 Oxycodone HCl 20 mg PO Q8H PRN 09/22/18 Doxycycline Hyclate 100 mg PO BID 7 Days #14 capsule 05/12/19 Anemia: No Asthma: No Cancer: No Cardiac Disorders: No ([employer] SAYS PT HAS NO A-FIB) CVA: No COPD: No CHF: No Dementia: No Diabetes: No GI Disorders: No Disorders: No HTN: Yes Hypercholesterolemia: No Kidney Stones: No Liver Disease: No Psychiatric Problems: Yes Seizures: Yes (2014) Thyroid Disease: No - Surgical History Abdominal Surgery: No Appendectomy: No Cardiac Surgery: No Cholecystectomy: No Lung Surgery: No Neurologic Surgery: No Orthopedic Surgery: Yes (R THR 2011/R HIP FX 2013) - Reproductive History Testicular Surgery: No - Immunization History Immunization Up to Date: Yes - Psycho Social/Smoking Cessation Hx Smoking Status: No Smoking History: Former smoker Have you smoked in the past 12 months: No Number of Cigarettes Smoked Daily: 0 If you are a former smoker, when did you quit?: 20 YRS AGO Information on smoking cessation initiated: No 'Breaking Loose' booklet given: 03/29/16 Hx Alcohol Use: No (SOBER FOR 2 YEARS) Drug/Substance Use Hx: No Substance Use Type: Alcohol Hx Substance Use Treatment: Yes (SOBER FOR SEVERAL YRS) Review of Systems - Review of Systems Comments:: 05/12/19 14:06 ROS: A complete review of 10 out of 10 review of systems is taken and is negative apart from what is previously mentioned below and in the HPI. *Physical Exam - Vital Signs Last Vital Signs Temp Pulse Resp BP Pulse Ox 98.4 F 62 20 133/79 98 05/12/19 11:08 05/12/19 11:08 05/12/19 11:08 05/12/19 11:08 05/12/19 11:08 - Physical Exam 05/12/19 14:07 Vitals: Triage Vital signs reviewed General Appearance: No acute distress, well nourished well developed, Head: Atraumatic, Cardiac: Regular rate and rhythym, no murmurs, no rubs, no gallops, Lungs: Crackles to right lung base Abdomen: Soft, non distended, normal bowel sounds, non tender to palpation Extremities: Full range of motion to all extremities, no cyanosis, clubbing, or edema Skin: Warm and dry, no rashes or lesions, no rash, no petechiae Psych: Normal mood, normal affect ED Treatment Course - LABORATORY CBC & Chemistry Diagram: 05/12/19 12:20 05/12/19 12:20 - ADDITIONAL ORDERS Additional order review: 05/12/19 12:20 RBC 4.64 MCV 86.5 MCHC 33.2 RDW 13.8 MPV 7.2 L Neutrophils % 71.9 D Lymphocytes % 22.6 D Monocytes % 3.3 L Eosinophils % 1.9 Basophils % 0.3 - RADIOLOGY Radiology Studies Ordered: Category Date Time Status CXRPORT [CHEST X-RAY PORTABLE*] [RAD] Stat Radiology 05/12/19 11:45 Taken - Medications Given in the ED: ED Medications Discontinued Medications Generic Name Dose Route Start Last Admin Trade Name Freq PRN Reason Stop Dose Admin Albuterol/Ipratropium 1 amp 05/12/19 11:17 05/12/19 12:34 Duoneb - NEB 05/12/19 11:18 1 amp ONCE ONE Administration Medical Decision Making - Medical Decision Making 05/12/19 14:08 Shortness of breath with cough EKG demonstrates sinus bradycardia at [address] elevations or T wave inversions Interpreted by me Troponin negative chest x-ray demonstrates right lobe infiltrate; low risk by curb 65 score no risk factors for outpatient management at this time we will treat with 7-day course of doxycycline Recommend close PCP follow-up and return to ED for any severe worsening symptoms or for any concerns Findings, the need for follow-up and strict return instructions discussed with patient. Discharge - Discharge Information Problems reviewed: Yes Clinical Impression/Diagnosis: Pneumonia Qualifiers: Pneumonia type: due to unspecified organism Laterality: right Lung location: unspecified part of lung Qualified Code(s): J18.9 - Pneumonia, unspecified organism Condition: Fair Disposition: HOME - Admission No - Additional Discharge Information Prescriptions: Doxycycline Hyclate 100 mg PO BID 7 Days #14 capsule - Follow up/Referral - Patient Discharge Instructions Patient Printed Discharge Instructions: DI for Pneumonia -- Adult Additional Instructions: Take antibiotics as prescribed next dose tonight Drink plenty fluids. Walk around but rest. Follow-up with your doctor within 2 to 3 days. Return to ED immediately for any severe worsening symptoms or for any concerns. - Post Discharge Activity Work/Back to School Note: Back to Work
[2019-05-12] MEDS ORDERED: DOXYCYCLINE HYCLATE 100 MG CAPSULE PO ONE ×2 (13:37→14:08)
--- NOTE | 2019-05-12 15:33 | EKG ---
Test Reason : Blood Pressure : / mmHG Vent. Rate : 056 BPM Atrial Rate : 056 BPM P-R Int : 138 ms QRS Dur : 110 ms QT Int : 422 ms P-R-T Axes : 049 -49 030 degrees QTc Int : 407 ms SINUS BRADYCARDIA LEFT ANTERIOR FASCICULAR BLOCK ABNORMAL ECG WHEN COMPARED WITH ECG OF 14-OCT-2017 21:17, VENT. RATE HAS DECREASED BY 35 BPM QT HAS SHORTENED Confirmed by Blake Betancourt MD ([id number]) on 05/12/2019 3:32:46 PM Referred By: ADRIANNA ALBERT Confirmed By:Blake Betancourt MD
== END 2019-05-12 14:34 | disposition home or self-care (01) ==
LOC: FER 11:07
PROC: 3E0F7GC Introduction of Other Therapeutic Substance into Respiratory Tract, Via Natural or Artificial Opening (ICD-10-PCS; principal; 2019-05-12)
DX: J18.9 Pneumonia, unspecified organism (principal); Z87.891 Personal history of nicotine dependence; I10 Essential (primary) hypertension; F99 Mental disorder, not otherwise specified
CPT/HCPCS: 36415; 71045-TC-FY; 80053; 84484; 85025; 93005; 94640; 99285-25

== ENCOUNTER 2019-06-12 17:10 | Emergency (ER) | payer OTHER ==
[2019-06-12 17:42] VITALS: BMI 29.6
[2019-06-12 19:32] VITALS: BP 118/56; PULSE 51; TEMP 98
[2019-06-12] MEDS ORDERED: levoFLOXacin 750 MG TABLET PO ONE (20:13)
--- NOTE | 2019-06-12 20:16 | PDOC ---
Documentation entered by Jaclyn Hewitt SCRIBE, acting as scribe for Ismael Humphreys MD. Ismael Humphreys MD: This documentation has been prepared by the Kash pickens Nirvannie, SCRIBE, under my direction and personally reviewed by me in its entirety. I confirm that the documentation accurately reflects all work, treatment, procedures, and medical decision making performed by me. History of Present Illness - General Chief Complaint: Respiratory Stated Complaint: COUGH Time Seen by Provider: 06/12/19 17:13 History Source: Patient Exam Limitations: No Limitations - History of Present Illness Initial Comments: 06/12/19 19:41 The patient is a 64 year old male with past medical history significant for ?Afib, Peripheral Neuropathy, HTN, and Alcoholic Hepatitis (former alcohol abuse) presents to the emergency department 2 days of productive cough of yellow sputum and 1 day of subjective fevers. Patient notes associated chest tightness only when coughing. He states his symptoms are similar to his previous episode of pneumonia last month, prompting his arrival to the ED. Patient was recently treated for pneumonia with a 7day course of Doxycycline Hyclate 100 mg PO BID a month ago (05/12). He denies any hemoptysis, dyspnea, dyspnea upon exertion, or nasal congestion. He denies any recent travel or sick contacts. Allergies: NKDA Social history: Former smoker, Former alcohol abuse, No past or present use of recreational drugs. Primary Care Physician: Dr. Moe Akbar. Past History - Past Medical History Allergies/Adverse Reactions: Allergies Allergy/AdvReac Type Severity Reaction Status Date / Time No Known Allergies Allergy Verified 05/12/19 11:08 Home Medications: Ambulatory Orders Topiramate [Topamax -] 200 mg PO HS #30 tablet 08/22/17 Pregabalin [Lyrica] 200 mg PO DAILY 12/22/17 Multivit-Mins/Iron/Folic/Lycop [Centrum Men's Tablet] 1 each PO DAILY 09/22/18 Oxycodone HCl 20 mg PO Q8H PRN 09/22/18 Atenolol [Tenormin -] 25 mg PO HS 06/12/19 Diltiazem HCl [Diltiazem 24Hr ER (Cd)] 180 mg PO HS 06/12/19 Levofloxacin [Levaquin] 750 mg PO DAILY #5 tablet 06/12/19 Pregabalin [Lyrica] 100 mg PO HS 06/12/19 Spironolactone [Aldactone -] 25 mg PO HS 06/12/19 Anemia: No Asthma: No Cancer: No Cardiac Disorders: No (ALTERATIONS EXPERT SAYS PT HAS NO A-FIB) CVA: No COPD: No CHF: No Dementia: No Diabetes: No GI Disorders: No Disorders: No HTN: Yes Hypercholesterolemia: No Kidney Stones: No Liver Disease: No Psychiatric Problems: Yes (BIPOLAR) Seizures: Yes (2015 ALCOHOL RELATED) Thyroid Disease: No - Surgical History Abdominal Surgery: No Appendectomy: No Cardiac Surgery: No Cholecystectomy: No Lung Surgery: No Neurologic Surgery: No Orthopedic Surgery: Yes (R THR 2011/R HIP FX 2013) - Reproductive History Testicular Surgery: No - Immunization History Immunization Up to Date: Yes - Psycho Social/Smoking Cessation Hx Smoking Status: No Smoking History: Former smoker Have you smoked in the past 12 months: No Number of Cigarettes Smoked Daily: 0 If you are a former smoker, when did you quit?: 20 YRS AGO Information on smoking cessation initiated: No 'Breaking Loose' booklet given: 03/29/16 Hx Alcohol Use: No (SOBER 2 YRS) Drug/Substance Use Hx: No Substance Use Type: Alcohol Hx Substance Use Treatment: Yes (SOBER FOR SEVERAL YRS) Review of Systems - Review of Systems Able to Perform ROS?: Yes Comments:: 06/12/19 19:41 CONSTITUTIONAL: Present: Subjective fever, No reported: Diaphoresis, Generalized Weakness, Malaise, Loss of Appetite HEENT: No reported: Rhinorrhea, Nasal Congestion, Throat Pain, Throat Swelling, Difficulty Swallowing, Mouth Swelling, Ear Pain, Eye Pain, Visual Changes CARDIOVASCULAR: No reported: Chest Pain, Syncope, Palpitations, Irregular Heart Rate, Lightheadedness, Peripheral Edema RESPIRATORY: Present: Cough, chest tightness No reported: Shortness of Breath, SOB with Exertion, Orthopnea, Wheezing, Stridor, Hemoptysis GASTROINTESTINAL: No reported: Abdominal pain, Abdominal Distension, Nausea, Vomiting, Diarrhea, Constipation, Melena, Hematochezia GENITOURINARY: No reported: Dysuria, Frequency, Urgency, Hesitancy, Flank Pain, Genital Pain MUSCULOSKELETAL: No reported: Myalgia, Arthralgia, Joint Swelling, Back pain, Neck Pain SKIN: No reported: Rash, Itching, Pallor HEMATOLOGIC/IMMUNOLOGIC: No reported: Easy Bleeding, Easy Bruising, Lymphadenopathy, Frequent infections ENDOCRINE: No reported: Unexplained Weight Gain, Unexplained Weight Loss, Heat Intolerance, Cold Intolerance NEUROLOGIC: No reported: Headache, Focal Weakness, Paresthesias, Vertigo, Lightheadedness, Unsteady Gait, Seizure, Mental Status Changes, Incontinence PSYCHIATRIC: No reported: Anxiety, Depression All Other Systems: Reviewed and Negative *Physical Exam - Vital Signs Last Vital Signs Temp Pulse Resp BP Pulse Ox 0/0 L 06/12/19 17:12 - Physical Exam 06/12/19 19:41 GENERAL: The patient is awake, alert, and fully oriented, Nontoxic - in no acute distress. HEAD: Normocephalic, atraumatic. EYES: extraocular movements intact, sclera anicteric, conjunctiva clear. ENT: Normal voice, Moist mucous membranes. NECK: Normal range of motion, supple LUNGS: Breath sounds equal, clear to auscultation bilaterally. No wheezes, no rhonchi, no rales. No evidence of respiratory distress, speaking in full sentences. HEART: Regular rate and rhythm, without murmur, rub or gallop. ABDOMEN: Soft, nontender, No guarding, no rebound. No CVA tenderness EXTREMITIES: Normal range of motion, no edema. No cyanosis. No erythema, or tenderness. No edema. NEUROLOGICAL: No facial assymetry, Normal speech, PSYCH: Normal mood, normal affect. SKIN: Warm, Dry, normal turgor, Medical Decision Making - Medical Decision Making 06/12/19 19:54 64y M presents with 2 days of cough, might wheezing/ches ttightness c/w prior pna, +subjective fever. denies body aches, sore throat, nasal congestion, becerra, abd pain, cp, diaphoresis, n/v, leg swelling hemoptysis. on exam pt wella peparing in no distress with clear lungs, speaking complete sentences in no resp distress will obtain xray to r/o pna ddx viral uri vs pna 06/12/19 20:14 the cxr noted for a R sided pna - will treat pt with levaquin will have pt fu with PMD returnp recautions were dsicussed I discussed the physical exam findings, ancillary test results and final diagnoses with the patient. I answered all of the patient's questions. The patient was satisfied with the care received and felt comfortable with the discharge plan and treatment plan. The patient will call their primary care physician within 24 hours to arrange follow-up and will return to the Emergency Department with any new, persistent or worsening symptoms. Discharge - Discharge Information Problems reviewed: Yes Clinical Impression/Diagnosis: Pneumonia Qualifiers: Pneumonia type: due to unspecified organism Laterality: right Lung location: lower lobe of lung Qualified Code(s): J18.9 - Pneumonia, unspecified organism Condition: Good Disposition: HOME - Admission No - Additional Discharge Information Prescriptions: Levofloxacin [Levaquin] 750 mg PO DAILY #5 tablet - Follow up/Referral Referrals: [facility] [place] [Provider Group] - Patient Discharge Instructions Patient Printed Discharge Instructions: DI for Pneumonia -- Adult Additional Instructions: Return to the emergency department immediately with ANY new, persistent or worsening symptoms Including worsening shortness of breath, chest pain or any other concerns. You MUST call and follow up with your doctor in 3-4 days for further evaluation of your symptoms. Results were discussed with you. Please make sure your doctor reviews the results of your emergency evaluation. Your Emergency Department visit is not complete without a follow up with your doctor. If you had any xrays during your visit, it was read preliminarily by myself, a Radiologist will review it and if there are any additional findings we will call you. Print Language: TURKMEN - Post Discharge Activity
== END 2019-06-12 20:31 | disposition home or self-care (01) ==
LOC: FER 17:10
DX: J18.9 Pneumonia, unspecified organism (principal)
CPT/HCPCS: 71045-TC-FY; 99283-25